=== PATIENT | female | born 1980 | race Caucasian/White ===

== ENCOUNTER 2019-04-10 10:03 | Outpatient (CLI) | payer OTHER ==
[~2019-04-10] VITALS: Ht 177.8 cm; Wt 123.9 kg
[~2019-04-10 10:03] MED LIST: ALBU8.5H2 IH; AZIT-21 PO; CEPH500C PO; LANS15CA PO; NAPR-243 PO; PREN-107 PO; PRENATAL PO; TRM50T PO
--- NOTE | 2019-04-10 10:05 | NUR ---
CASTRO PEREIRA presented to unit via ambulation, accompanied by , with c/o RT UPPER ABD PAIN since last noc. Pt. weighed, gowned, voided, and to bed. EFHM and TOCO applied, VS taken. Pt. oriented to bed controls, call light, TV, heat, and A/C controls.
--- OUTSIDE RECORDS SUMMARY | 2019-04-10 10:07 | XMS REPORT | Continuity of Care Document ---
Author Organization Unknown Address Unknown Allergies Active Description Code Type Severity Reaction Onset Reported/Identified Relationship to Patient Clinical Status Yes NKANo Known Allergies NKA Miscellaneous Allergy Mild N/A 12/08/2009 Medications There is no data. 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 06/13/2008 RYLAND MARKS APRN A 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 06/13/2008 CONCHITA PICKETT MD 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 06/13/2008 NANNETTE VANEGAS DO 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 06/13/2008 MONICA HANCOCK APRN 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 06/13/2008 NANNETTE VANEGAS DO 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 06/13/2008 NANNETTE VANEGAS DO 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 06/13/2008 NANNETTE VANEGAS DO 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 06/13/2008 NANNETTE VANEGAS DO 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 06/13/2008 NANNETTE VANEGAS DO 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 06/13/2008 NANNETTE VANEGAS DO 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 06/13/2008 VANEGAS DO, NANNETTE K 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 06/13/2008 VANEGAS DO, NANNETTE K 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 06/13/2008 VANEGAS DO, NANNETTE K 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 06/13/2008 VANEGAS DO, NANNETTE K 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 06/13/2008 VANEGAS DO, NANNETTE K 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 06/13/2008 QI CAZARES APRN 728.9 UNSPECIFIED DISORDER OF MUSCLE LIGAMENT AND FASCIA 10/12/2012 VANEGAS DO, NANNETTE K 703.0 Nail Ingrown 10/12/2012 VANEGAS DO, NANNETTE K 703.0 Nail Ingrown 10/12/2012 703.0 Nail Ingrown 10/12/2012 VANEGAS DO, NANNETTE K 703.0 Nail Ingrown 10/12/2012 VANEGAS DO, NANNETTE K 703.0 Nail Ingrown 10/12/2012 KENDRICK GRIGGSN, RYLAND A 703.0 Nail Ingrown 10/12/2012 KENDRICK UNDERCOAT SPRAYER, RYLAND A 703.0 Nail Ingrown 10/12/2012 PIYUSH JOSHI, CONCHITA N 703.0 Nail Ingrown 10/12/2012 VANEGAS DO, NANNETTE K 703.0 Nail Ingrown 10/12/2012 MONICA HANCOCK APRN 703.0 Nail Ingrown 10/12/2012 VANEGAS DO, NANNETTE K 703.0 Nail Ingrown 10/12/2012 VANEGAS DO, NANNETTE K 703.0 Nail Ingrown 10/12/2012 VANEGAS DO, NANNETTE K 703.0 Nail Ingrown 10/12/2012 VANEGAS DO, NANNETTE K 703.0 Nail Ingrown 10/12/2012 VANEGAS DO, NANNETTE K 703.0 Nail Ingrown 10/12/2012 VANEGAS DO, NANNETTE K 703.0 Nail Ingrown 10/12/2012 VANEGAS DO, NANNETTE K 703.0 Nail Ingrown 10/12/2012 VANEGAS DO, NANNETTE K 703.0 Nail Ingrown 10/12/2012 VANEGAS DO, NANNETTE K 703.0 Nail Ingrown 10/12/2012 VANEGAS DO, NANNETTE K 703.0 Nail Ingrown 10/12/2012 VANEGAS DO, NANNETTE K 703.0 Nail Ingrown 10/12/2012 QI CAZARES APRN 703.0 NAIL INGROWN 11/02/2012 VANEGAS DO NANNETTE K 493.90 ASTHMA UNSPECIFIED 11/02/2012 VANEGAS DO, NANNETTE K 628.9 INFERTILITY FEMALE OF UNSPECIFIED ORIGIN 11/02/2012 VANEGAS DO NANNETTE K 493.90 ASTHMA UNSPECIFIED 11/02/2012 VANEGAS DO NANNETTE K 628.9 INFERTILITY FEMALE OF UNSPECIFIED ORIGIN 11/02/2012 493.90 ASTHMA UNSPECIFIED 11/02/2012 628.9 INFERTILITY FEMALE OF UNSPECIFIED ORIGIN 11/02/2012 VANEGAS DO NANNETTE K 493.90 ASTHMA UNSPECIFIED 11/02/2012 VANEGAS DO NANNETTE K 628.9 INFERTILITY FEMALE OF UNSPECIFIED ORIGIN 11/02/2012 VANEGAS DO NANNETTE K 493.90 ASTHMA UNSPECIFIED 11/02/2012 VANEGAS DO NANNETTE K 628.9 INFERTILITY FEMALE OF UNSPECIFIED ORIGIN 11/02/2012 KENDRICK UNDERCOAT SPRAYER, RYLAND A 493.90 ASTHMA UNSPECIFIED 11/02/2012 KENDRICK UNDERCOAT SPRAYER, RYLAND A 628.9 INFERTILITY FEMALE OF UNSPECIFIED ORIGIN 11/02/2012 KENDRICK UNDERCOAT SPRAYER, RYLAND A 493.90 ASTHMA UNSPECIFIED 11/02/2012 KENDRICK UNDERCOAT SPRAYER, RYLAND A 628.9 INFERTILITY FEMALE OF UNSPECIFIED ORIGIN 11/02/2012 CONCHITA PICKETT MD N 493.90 ASTHMA UNSPECIFIED 11/02/2012 CONCHITA PICKETT MD N 628.9 INFERTILITY FEMALE OF UNSPECIFIED ORIGIN 11/02/2012 GUILHERME FUENTES NANNETTE K 493.90 ASTHMA UNSPECIFIED 11/02/2012 GUILHERME FUENTES NANNETTE K 628.9 INFERTILITY FEMALE OF UNSPECIFIED ORIGIN 11/02/2012 MONICA HANCOCK APRN R 493.90 ASTHMA UNSPECIFIED 11/02/2012 MONICA HANCOCK APRN R 628.9 INFERTILITY FEMALE OF UNSPECIFIED ORIGIN 11/02/2012 VANEGAS DO NANNETTE K 493.90 ASTHMA UNSPECIFIED 11/02/2012 VANEGAS DO NANNETTE K 628.9 INFERTILITY FEMALE OF UNSPECIFIED ORIGIN 11/02/2012 VANEGAS DO NANNETTE K 493.90 ASTHMA UNSPECIFIED 11/02/2012 VANEGAS DO, NANNETTE K 628.9 INFERTILITY FEMALE OF UNSPECIFIED ORIGIN 11/02/2012 VANEGAS DO, NANNETTE K 493.90 ASTHMA UNSPECIFIED 11/02/2012 VANEGAS DO, NANNETTE K 628.9 INFERTILITY FEMALE OF UNSPECIFIED ORIGIN 11/02/2012 VANEGAS DO, NANNETTE K 493.90 ASTHMA UNSPECIFIED 11/02/2012 VANEGAS DO, NANNETTE K 628.9 INFERTILITY FEMALE OF UNSPECIFIED ORIGIN 11/02/2012 VANEGAS DO, NANNETTE K 493.90 ASTHMA UNSPECIFIED 11/02/2012 VANEGAS DO, NANNETTE K 628.9 INFERTILITY FEMALE OF UNSPECIFIED ORIGIN 11/02/2012 VANEGAS DO, NANNETTE K 493.90 ASTHMA UNSPECIFIED 11/02/2012 VANEGAS DO, NANNETTE K 628.9 INFERTILITY FEMALE OF UNSPECIFIED ORIGIN 11/02/2012 VANEGAS DO, NANNETTE K 493.90 ASTHMA UNSPECIFIED 11/02/2012 VANEGAS DO, NANNETTE K 628.9 INFERTILITY FEMALE OF UNSPECIFIED ORIGIN 11/02/2012 VANEGAS DO, NANNETTE K 493.90 ASTHMA UNSPECIFIED 11/02/2012 VANEGAS DO, NANNETTE K 628.9 INFERTILITY FEMALE OF UNSPECIFIED ORIGIN 11/02/2012 VANEGAS DO, NANNETTE K 493.90 ASTHMA UNSPECIFIED 11/02/2012 VANEGAS DO, NANNETTE K 628.9 INFERTILITY FEMALE OF UNSPECIFIED ORIGIN 11/02/2012 VANEGAS DO, NANNETTE K 493.90 ASTHMA UNSPECIFIED 11/02/2012 VANEGAS DO, NANNETTE K 628.9 INFERTILITY FEMALE OF UNSPECIFIED ORIGIN 11/02/2012 VANEGAS DO, NANNETTE K 493.90 ASTHMA UNSPECIFIED 11/02/2012 VANEGAS DO, NANNETTE K 628.9 INFERTILITY FEMALE OF UNSPECIFIED ORIGIN 12/04/2012 610.1 DIFFUSE CYSTIC MASTOPATHY 12/04/2012 V76.2 CERVICAL CANCER SCREENING (PAP SMEAR) 12/04/2012 VANEGAS DO, NANNETTE K 610.1 DIFFUSE CYSTIC MASTOPATHY 12/04/2012 VANEGAS DO, NANNETTE K V76.2 CERVICAL CANCER SCREENING (PAP SMEAR) 12/04/2012 VANEGAS DO, NANNETTE K 610.1 DIFFUSE CYSTIC MASTOPATHY 12/04/2012 VANEGAS DO, NANNETTE K V76.2 CERVICAL CANCER SCREENING (PAP SMEAR) 12/04/2012 RYLAND MARKS APRN A 610.1 DIFFUSE CYSTIC MASTOPATHY 12/04/2012 RYLAND MARKS APRN A V76.2 CERVICAL CANCER SCREENING (PAP SMEAR) 12/04/2012 RYLAND MARKS APRN A 610.1 DIFFUSE CYSTIC MASTOPATHY 12/04/2012 RYLAND MARKS APRN A V76.2 CERVICAL CANCER SCREENING (PAP SMEAR) 12/04/2012 CONCHITA PICKETT MD 610.1 DIFFUSE CYSTIC MASTOPATHY 12/04/2012 CONCHITA PICKETT MD V76.2 CERVICAL CANCER SCREENING (PAP SMEAR) 12/04/2012 GUILHERME FUENTES NANNETTE K 610.1 DIFFUSE CYSTIC MASTOPATHY 12/04/2012 VANEGAS DO, NANNETTE K V76.2 CERVICAL CANCER SCREENING (PAP SMEAR) 12/04/2012 SANTI PRATT MONICA R 610.1 DIFFUSE CYSTIC MASTOPATHY 12/04/2012 STEWART HANCOCK APRNRICIA R V76.2 CERVICAL CANCER SCREENING (PAP SMEAR) 12/04/2012 GUILHERME FUENTES NANNETTE K 610.1 DIFFUSE CYSTIC MASTOPATHY 12/04/2012 VANEGAS , NANNETTE K V76.2 CERVICAL CANCER SCREENING (PAP SMEAR) 12/04/2012 GUILHERME FUENTES NANNETTE K 610.1 DIFFUSE CYSTIC MASTOPATHY 12/04/2012 VANEGAS , NANNETTE K V76.2 CERVICAL CANCER SCREENING (PAP SMEAR) 12/04/2012 VANEGAS , NANNETTE K 610.1 DIFFUSE CYSTIC MASTOPATHY 12/04/2012 VANEGAS DO, NANNETTE K V76.2 CERVICAL CANCER SCREENING (PAP SMEAR) 12/04/2012 VANEGAS DO, NANNETTE K 610.1 DIFFUSE CYSTIC MASTOPATHY 12/04/2012 VANEGAS DO, NANNETTE K V76.2 CERVICAL CANCER SCREENING (PAP SMEAR) 12/04/2012 GUILHERME FUENTES NANNETTE K 610.1 DIFFUSE CYSTIC MASTOPATHY 12/04/2012 VANEGAS DO, NANNETTE K V76.2 CERVICAL CANCER SCREENING (PAP SMEAR) 12/04/2012 VANEGAS DO, NANNETTE K 610.1 DIFFUSE CYSTIC MASTOPATHY 12/04/2012 VANEGAS DO, NANNETTE K V76.2 CERVICAL CANCER SCREENING (PAP SMEAR) 12/04/2012 VANEGAS DO, NANNETTE K 610.1 DIFFUSE CYSTIC MASTOPATHY 12/04/2012 VANEGAS DO, NANNETTE K V76.2 CERVICAL CANCER SCREENING (PAP SMEAR) 12/04/2012 VANEGAS , NANNETTE K 610.1 DIFFUSE CYSTIC MASTOPATHY 12/04/2012 VANEGAS DO, NANNETTE K V76.2 CERVICAL CANCER SCREENING (PAP SMEAR) 12/04/2012 VANEGAS DO, NANNETTE K 610.1 DIFFUSE CYSTIC MASTOPATHY 12/04/2012 VANEGAS DO, NANNETTE K V76.2 CERVICAL CANCER SCREENING (PAP SMEAR) 12/04/2012 VANEGAS DO, NANNETTE K 610.1 DIFFUSE CYSTIC MASTOPATHY 12/04/2012 VANEGAS DO, NANNETTE K V76.2 CERVICAL CANCER SCREENING (PAP SMEAR) 12/04/2012 VANEGAS DO, NANNETTE K 610.1 DIFFUSE CYSTIC MASTOPATHY 12/04/2012 VANEGAS DO, NANNETTE K V76.2 CERVICAL CANCER SCREENING (PAP SMEAR) 04/15/2014 VANEGAS DO, NANNETTE K V72.42 TEST POSITIVE RESULT 04/15/2014 KENDRICK PRATT, RYLAND A V72.42 TEST POSITIVE RESULT 04/15/2014 KENDRICK PRATT RYLAND A V72.42 TEST POSITIVE RESULT 04/15/2014 CONCHITA PICKETT MD V72.42 TEST POSITIVE RESULT 04/15/2014 VANEGAS DO, NANNETTE K V72.42 TEST POSITIVE RESULT 04/15/2014 MONICA HANCOCK APRN R V72.42 TEST POSITIVE RESULT 04/15/2014 VANEGAS DO, NANNETTE K V72.42 TEST POSITIVE RESULT 04/15/2014 VANEGAS DO, NANNETTE K V72.42 TEST POSITIVE RESULT 04/15/2014 VANEGAS DO, NANNETTE K V72.42 TEST POSITIVE RESULT 04/15/2014 VANEGAS DO, NANNETTE K V72.42 TEST POSITIVE RESULT 04/15/2014 VANEGAS DO, NANNETTE K V72.42 TEST POSITIVE RESULT 04/15/2014 VANEGAS DO, NANNETTE K V72.42 TEST POSITIVE RESULT 04/15/2014 VANEGAS DO, NANNETTE K V72.42 TEST POSITIVE RESULT 04/15/2014 VANEGAS DO, NANNETTE K V72.42 TEST POSITIVE RESULT 04/15/2014 VANEGAS DO, NANNETTE K V72.42 TEST POSITIVE RESULT 04/15/2014 VANEGAS DO, NANNETTE K V72.42 TEST POSITIVE RESULT 04/15/2014 VANEGAS DO, NANNETTE K V72.42 TEST POSITIVE RESULT 04/30/2014 RYLAND MARKS APRN A V22.1 , NORMAL OTHER 04/30/2014 RYLAND MARKS APRN A V22.1 , NORMAL OTHER 04/30/2014 PIYUSH JOSHI CONCHITA Garcia V22.1 , NORMAL OTHER 04/30/2014 VANEGAS DO, NANNETTE K V22.1 , NORMAL OTHER 04/30/2014 MACK HANCOCK APRNIA R V22.1 , NORMAL OTHER 04/30/2014 VANEGAS DO, NANNETTE K V22.1 , NORMAL OTHER 04/30/2014 VANEGAS DO, NANNETTE K V22.1 , NORMAL OTHER 04/30/2014 VANEGAS DO, NANNETTE K V22.1 , NORMAL OTHER 04/30/2014 VANEGAS DO, NANNETTE K V22.1 , NORMAL OTHER 04/30/2014 VANEGAS DO, NANNETTE K V22.1 , NORMAL OTHER 04/30/2014 VANEGAS DO, NANNETTE K V22.1 , NORMAL OTHER 04/30/2014 VANEGAS DO, NANNETTE K V22.1 , NORMAL OTHER 04/30/2014 VANEGAS DO, NANNETTE K V22.1 , NORMAL OTHER 04/30/2014 VANEGAS DO, NANNETTE K V22.1 , NORMAL OTHER 04/30/2014 VANEGAS DO, NANNETTE K V22.1 , NORMAL OTHER 04/30/2014 VANEGAS DO, NANNETTE K V22.1 , NORMAL OTHER 05/29/2014 RYLAND MARKS APRN A 611.72 LUMP OR MASS IN BREAST 05/29/2014 KENDRICK PRATT RYLAND A V74.5 STD SCREEN 05/29/2014 CONCHITA PICKETT MD N 611.72 LUMP OR MASS IN BREAST 05/29/2014 CONCHITA PICKETT MD N V74.5 STD SCREEN 05/29/2014 VANEGAS DO, NANNETTE K 611.72 LUMP OR MASS IN BREAST 05/29/2014 VANEGAS DO, NANNETTE K V74.5 STD SCREEN 05/29/2014 MACK HANCOCK APRNIA R 611.72 LUMP OR MASS IN BREAST 05/29/2014 MACK HANCOCK APRNIA R V74.5 STD SCREEN 05/29/2014 VANEGAS DO, NANNETTE K 611.72 LUMP OR MASS IN BREAST 05/29/2014 VANEGAS DO, NANNETTE K V74.5 STD SCREEN 05/29/2014 VANEGAS DO, NANNETTE K 611.72 LUMP OR MASS IN BREAST 05/29/2014 VANEGAS DO, NANNETTE K V74.5 STD SCREEN 05/29/2014 VANEGAS DO, NANNETTE K 611.72 LUMP OR MASS IN BREAST 05/29/2014 VANEGAS DO, NANNETTE K V74.5 STD SCREEN 05/29/2014 VANEGAS DO, NANNETTE K 611.72 LUMP OR MASS IN BREAST 05/29/2014 VANEGAS DO, NANNETTE K V74.5 STD SCREEN 05/29/2014 VANEGAS DO, NANNETTE K 611.72 LUMP OR MASS IN BREAST 05/29/2014 VANEGAS DO, NANNETTE K V74.5 STD SCREEN 05/29/2014 VANEGAS DO, NANNETTE K 611.72 LUMP OR MASS IN BREAST 05/29/2014 VANEGAS DO, NANNETTE K V74.5 STD SCREEN 05/29/2014 VANEGAS DO, NANNETTE K 611.72 LUMP OR MASS IN BREAST 05/29/2014 VANEGAS DO, NANNETTE K V74.5 STD SCREEN 05/29/2014 VANEGAS DO, NANNETTE K 611.72 LUMP OR MASS IN BREAST 05/29/2014 VANEGAS DO, NANNETTE K V74.5 STD SCREEN 05/29/2014 VANEGAS DO, NANNETTE K 611.72 LUMP OR MASS IN BREAST 05/29/2014 VANEGAS DO, NANNETTE K V74.5 STD SCREEN 05/29/2014 VANEGAS DO, NANNETTE K 611.72 LUMP OR MASS IN BREAST 05/29/2014 VANEGAS DO, NANNETTE K V74.5 STD SCREEN 05/29/2014 VANEGAS DO, NANNETTE K 611.72 LUMP OR MASS IN BREAST 05/29/2014 VANEGAS DO, NANNETTE K V74.5 STD SCREEN 06/20/2014 CONCHITA PICKETT MD 789.00 ABDOMINAL PAIN UNSPECIFIED SITE 06/20/2014 VANEGAS DO, NANNETTE K 789.00 ABDOMINAL PAIN UNSPECIFIED SITE 06/20/2014 MONICA HANCOCK APRN 789.00 ABDOMINAL PAIN UNSPECIFIED SITE 06/20/2014 VANEGAS DO, NANNETTE K 789.00 ABDOMINAL PAIN UNSPECIFIED SITE 06/20/2014 VANEGAS DO, NANNETTE K 789.00 ABDOMINAL PAIN UNSPECIFIED SITE 06/20/2014 VANEGAS DO, NANNETTE K 789.00 ABDOMINAL PAIN UNSPECIFIED SITE 06/20/2014 VANEGAS DO, NANNETTE K 789.00 ABDOMINAL PAIN UNSPECIFIED SITE 06/20/2014 VANEGAS DO, NANNETTE K 789.00 ABDOMINAL PAIN UNSPECIFIED SITE 06/20/2014 VANEGAS DO, NANNETTE K 789.00 ABDOMINAL PAIN UNSPECIFIED SITE 06/20/2014 VANEGAS DO, NANNETTE K 789.00 ABDOMINAL PAIN UNSPECIFIED SITE 06/20/2014 VANEGAS DO, NANNETTE K 789.00 ABDOMINAL PAIN UNSPECIFIED SITE 06/20/2014 VANEGAS DO, NANNETTE K 789.00 ABDOMINAL PAIN UNSPECIFIED SITE 06/20/2014 VANEGAS DO, NANNETTE K 789.00 ABDOMINAL PAIN UNSPECIFIED SITE 06/20/2014 VANEGAS DO, NANNETTE K 789.00 ABDOMINAL PAIN UNSPECIFIED SITE 07/14/2014 HANCOCK UNDERCOAT SPRAYER, MONICA R 462 ACUTE PHARYNGITIS 07/14/2014 SANTI UNDERCOAT SPRAYER, MONICA R 786.2 COUGH 07/14/2014 VANEGAS DO, NANNETTE K 462 ACUTE PHARYNGITIS 07/14/2014 VANEGAS DO, NANNETTE K 786.2 COUGH 07/14/2014 VANEGAS DO, NANNETTE K 462 ACUTE PHARYNGITIS 07/14/2014 VANEGAS DO, NANNETTE K 786.2 COUGH 07/14/2014 VANEGAS DO, NANNETTE K 462 ACUTE PHARYNGITIS 07/14/2014 VANEGAS DO, NANNETTE K 786.2 COUGH 07/14/2014 VANEGAS DO, NANNETTE K 462 ACUTE PHARYNGITIS 07/14/2014 VANEGAS DO, NANNETTE K 786.2 COUGH 07/14/2014 VANEGAS DO, NANNETTE K 462 ACUTE PHARYNGITIS 07/14/2014 VANEGAS DO, NANNETTE K 786.2 COUGH 07/14/2014 VANEGAS DO, NANNETTE K 462 ACUTE PHARYNGITIS 07/14/2014 VANEGAS DO, NANNETTE K 786.2 COUGH 07/14/2014 VANEGAS DO, NANNETTE K 462 ACUTE PHARYNGITIS 07/14/2014 VANEGAS DO, NANNETTE K 786.2 COUGH 07/14/2014 VANEGAS DO, NANNETTE K 462 ACUTE PHARYNGITIS 07/14/2014 VANEGAS DO, NANNETTE K 786.2 COUGH 07/14/2014 VANEGAS DO, NANNETTE K 462 ACUTE PHARYNGITIS 07/14/2014 VANEGAS DO, NANNETTE K 786.2 COUGH 07/14/2014 VANEGAS DO, NANNETTE K 462 ACUTE PHARYNGITIS 07/14/2014 VANEGAS DO, NANNETTE K 786.2 COUGH 07/14/2014 VANEGAS DO, NANNETTE K 462 ACUTE PHARYNGITIS 07/14/2014 VANEGAS DO, NANNETTE K 786.2 COUGH 07/18/2014 VANEGAS DO, NANNETTE K Ot 276.51 07/18/2014 VANEGAS DO, NANNETTE K Ot 462 07/18/2014 VANEGAS DO, NANNETTE K Ot 648.93 07/31/2014 VANEGAS DO, NANNETTE K 472.1 CHRONIC PHARYNGITIS 07/31/2014 VANEGAS DO, NANNETTE K 472.1 CHRONIC PHARYNGITIS 07/31/2014 VANEGAS DO, NANNETTE K 472.1 CHRONIC PHARYNGITIS 07/31/2014 VANEGAS DO, NANNETTE K 472.1 CHRONIC PHARYNGITIS 07/31/2014 VANEGAS DO, NANNETTE K 472.1 CHRONIC PHARYNGITIS 07/31/2014 VANEGAS DO, NANNETTE K 472.1 CHRONIC PHARYNGITIS 07/31/2014 VANEGAS DO, NANNETTE K 472.1 CHRONIC PHARYNGITIS 07/31/2014 VANEGAS DO, NANNETTE K 472.1 CHRONIC PHARYNGITIS 07/31/2014 VANEGAS DO, NANNETTE K 472.1 CHRONIC PHARYNGITIS 07/31/2014 VANEGAS DO, NANNETTE K 472.1 CHRONIC PHARYNGITIS 08/25/2014 VANEGAS DO, NANNETTE K 655.13 ABNORMAL TETRA SCREEN (DOWNS OR TRISOMY 18) 08/25/2014 VANEGAS DO, NANNETTE K V04.81 FLU SHOT 08/25/2014 VANEGAS DO, NANNETTE K 655.13 ABNORMAL TETRA SCREEN (DOWNS OR TRISOMY 18) 08/25/2014 VANEGAS DO, NANNETTE K V04.81 FLU SHOT 08/25/2014 VANEGAS DO, NANNETTE K 655.13 ABNORMAL TETRA SCREEN (DOWNS OR TRISOMY 18) 08/25/2014 VANEGAS DO, NANNETTE K V04.81 FLU SHOT 08/25/2014 VANEGAS DO, NANNETTE K 655.13 ABNORMAL TETRA SCREEN (DOWNS OR TRISOMY 18) 08/25/2014 VANEGAS DO, NANNETTE K V04.81 FLU SHOT 08/25/2014 VANEGAS DO, NANNETTE K 655.13 ABNORMAL TETRA SCREEN (DOWNS OR TRISOMY 18) 08/25/2014 VANEGAS DO, NANNETTE K V04.81 FLU SHOT 08/25/2014 VANEGAS DO, NANNETTE K 655.13 ABNORMAL TETRA SCREEN (DOWNS OR TRISOMY 18) 08/25/2014 VANEGAS DO, NANNETTE K V04.81 FLU SHOT 08/25/2014 VANEGAS DO, NANNETTE K 655.13 ABNORMAL TETRA SCREEN (DOWNS OR TRISOMY 18) 08/25/2014 VANEGAS DO, NANNETTE K V04.81 FLU SHOT 08/25/2014 VANEGAS DO, NANNETTE K 655.13 ABNORMAL TETRA SCREEN (DOWNS OR TRISOMY 18) 08/25/2014 VANEGAS DO, NANNETTE K V04.81 FLU SHOT 08/25/2014 VANEGAS DO, NANNETTE K 655.13 ABNORMAL TETRA SCREEN (DOWNS OR TRISOMY 18) 08/25/2014 VANEGAS DO, NANNETTE K V04.81 FLU SHOT 09/22/2014 VANEGAS DO, NANNETTE K V77.1 DIABETES SCREENING 09/22/2014 VANEGAS DO, NANNETTE K V78.0 ANEMIA SCREENING 09/22/2014 VANEGAS DO, NANNETTE K V77.1 DIABETES SCREENING 09/22/2014 VANEGAS DO, NANNETTE K V78.0 ANEMIA SCREENING 09/22/2014 VANEGAS DO, NANNETTE K V77.1 DIABETES SCREENING 09/22/2014 VANEGAS DO, NANNETTE K V78.0 ANEMIA SCREENING 09/22/2014 VANEGAS DO, NANNETTE K V77.1 DIABETES SCREENING 09/22/2014 VANEGAS DO, NANNETTE K V78.0 ANEMIA SCREENING 09/22/2014 VANEGAS DO, NANNETTE K V77.1 DIABETES SCREENING 09/22/2014 VANEGAS DO, NANNETTE K V78.0 ANEMIA SCREENING 09/22/2014 VANEGAS DO, NANNETTE K V77.1 DIABETES SCREENING 09/22/2014 VANEGAS DO, NANNETTE K V78.0 ANEMIA SCREENING 09/22/2014 VANEGAS DO, NANNETTE K V77.1 DIABETES SCREENING 09/22/2014 VANEGAS DO, NANNETTE K V78.0 ANEMIA SCREENING 09/22/2014 VANEGAS DO, NANNETTE K V77.1 DIABETES SCREENING 09/22/2014 VANEGAS DO, NANNETTE K V78.0 ANEMIA SCREENING 09/24/2014 VANEGAS DO, NANNETTE K 648.80 ABNORMAL GTT IN 09/24/2014 VANEGAS DO, NANNETTE K 648.80 ABNORMAL GTT IN 09/24/2014 VANEGAS DO, NANNETTE K 648.80 ABNORMAL GTT IN 09/24/2014 VANEGAS DO, NANNETTE K 648.80 ABNORMAL GTT IN 09/24/2014 VANEGAS DO, NANNETTE K 648.80 ABNORMAL GTT IN 09/24/2014 VANEGAS DO, NANNETTE K 648.80 ABNORMAL GTT IN 09/24/2014 VANEGAS DO, NANNETTE K 648.80 ABNORMAL GTT IN 09/24/2014 VANEGAS DO, NANNETTE K 648.80 ABNORMAL GTT IN 10/10/2014 VANEGAS DO, NANNETTE K Ot 648.83 11/03/2014 VANEGAS DO, NANNETTE K 789.00 ABDOMINAL PAIN UNSPECIFIED SITE 11/03/2014 VANEGAS DO, NANNETTE K 789.00 ABDOMINAL PAIN UNSPECIFIED SITE 11/03/2014 VANEGAS DO, NANNETTE K 789.00 ABDOMINAL PAIN UNSPECIFIED SITE 11/03/2014 VANEGAS DO, NANNETTE K 789.00 ABDOMINAL PAIN UNSPECIFIED SITE 11/03/2014 VANEGAS DO, NANNETTE K 789.00 ABDOMINAL PAIN UNSPECIFIED SITE 11/03/2014 VANEGAS DO, NANNETTE K 789.00 ABDOMINAL PAIN UNSPECIFIED SITE 11/06/2014 Ot 611.72 11/06/2014 Ot V22.1 11/06/2014 Ot V22.1 11/06/2014 Ot 722.52 11/06/2014 KENDRICK, RYLAND A UNDERCOAT SPRAYER Ot 620.2 11/06/2014 KENDRICK, RYLAND A UNDERCOAT SPRAYER Ot 648.93 11/06/2014 KENDRICK, RYLAND A UNDERCOAT SPRAYER Ot V28.81 11/06/2014 KENDRICK, RYLAND A UNDERCOAT SPRAYER Ot 611.72 11/06/2014 KENDRICK, RYLAND A UNDERCOAT SPRAYER Ot V22.2 11/06/2014 VANEGAS DO, NANNETTE K Ot V28.81 11/06/2014 VANEGAS DO, NANNETTE K Ot 655.13 11/06/2014 VANEGAS DO, NANNETTE K Ot V28.81 11/06/2014 VANEGAS DO, NANNETTE K Ot 648.83 11/06/2014 VANEGAS DO, NANNETTE K Ot V28.81 11/06/2014 VANEGAS DO, NANNETTE K Ot V28.81 11/06/2014 VANEGAS DO, NANNETTE K Ot 655.13 11/06/2014 VANEGAS DO, NANNETTE K Ot V28.81 11/14/2014 VANEGAS DO, NANNETTE K Ot 625.9 11/14/2014 VANEGAS DO, NANNETTE K Ot 648.93 11/24/2014 VANEGAS DO, NANNETTE K V23.9 , HIGH-RISK (UNSPEC) 11/24/2014 VANEGAS DO, NANNETTE K V28.6 GBS SCREENING 11/24/2014 VANEGAS DO, NANNETTE K V23.9 , HIGH-RISK (UNSPEC) 11/24/2014 VANEGAS DO, NANNETTE K V28.6 GBS SCREENING 11/24/2014 VANEGAS DO, NANNETTE K V23.9 , HIGH-RISK (UNSPEC) 11/24/2014 VANEGAS DO, NANNETTE K V28.6 GBS SCREENING 11/24/2014 VANEGAS DO, NANNETTE K V23.9 , HIGH-RISK (UNSPEC) 11/24/2014 VANEGAS DO, NANNETTE K V28.6 GBS SCREENING 11/27/2014 VANEGAS DO, NANNETTE K Ot V28.81 12/01/2014 VANEGAS DO, ANNNETTE K 530.81 ESOPHAGEAL REFLUX 12/01/2014 VANEGAS DO, NANNETTE K 530.81 ESOPHAGEAL REFLUX 12/01/2014 VANEGAS DO, NANNETTE K 530.81 ESOPHAGEAL REFLUX 12/15/2014 Ot 611.72 12/15/2014 Ot V22.1 12/15/2014 Ot V22.1 12/15/2014 Ot 722.52 12/15/2014 RYLAND MARKS UNDERCOAT SPRAYER Ot 620.2 12/15/2014 RYLAND MARKS UNDERCOAT SPRAYER Ot 648.93 12/15/2014 RYLAND MARKS UNDERCOAT SPRAYER Ot V28.81 12/15/2014 RYLAND MARKS UNDERCOAT SPRAYER Ot 611.72 12/15/2014 RYLAND MARKS UNDERCOAT SPRAYER Ot V22.2 12/15/2014 VANEGAS DO, NANNETTE K Ot V28.81 12/15/2014 VANEGAS DO, NANNETTE K Ot 655.13 12/15/2014 VANEGAS DO, NANNETTE K Ot V28.81 12/15/2014 VANEGAS DO, NANNETTE K Ot 648.83 12/15/2014 VANEGAS DO, NANNETTE K Ot V28.81 12/16/2014 Ot 611.72 12/16/2014 Ot V22.1 12/16/2014 Ot V22.1 12/16/2014 Ot 722.52 12/16/2014 RYLAND MARKS UNDERCOAT SPRAYER Ot 620.2 12/16/2014 KENDRICK, RYLAND A UNDERCOAT SPRAYER Ot 648.93 12/16/2014 KENDRICK, RYLAND A UNDERCOAT SPRAYER Ot V28.81 12/16/2014 KENDRICK, RYLAND A UNDERCOAT SPRAYER Ot 611.72 12/16/2014 KENDRICK, RYLAND A UNDERCOAT SPRAYER Ot V22.2 12/16/2014 VANEGAS DO, NANNETTE K Ot V28.81 12/16/2014 VANEGAS DO, NANNETTE K Ot 655.13 12/16/2014 VANEGAS DO, NANNETTE K Ot V28.81 12/16/2014 VANEGAS DO, NANNETTE K Ot 648.83 12/16/2014 VANEGAS DO, NANNETTE K Ot V28.81 12/17/2014 VANEGAS DO, NANNETTE K Ot 288.60 12/17/2014 VANEGAS DO, NANNETTE K Ot 645.11 12/17/2014 VANEGAS DO, NANNETTE K Ot 648.91 12/17/2014 VANEGAS DO, NANNETTE K Ot V27.0 12/19/2014 VANEGAS DO, NANNETTE K Ot 655.13 12/19/2014 VANEGAS DO, NANNETTE K Ot V28.81 12/19/2014 VANEGAS DO, NANNETTE K Ot V28.81 12/19/2014 KENDRICK, RYLAND A UNDERCOAT SPRAYER Ot 611.72 12/19/2014 KENDRICK, RYLAND A UNDERCOAT SPRAYER Ot V22.2 12/19/2014 KENDRICK, RYLAND A UNDERCOAT SPRAYER Ot 620.2 12/19/2014 KENDRICK, RYLAND A UNDERCOAT SPRAYER Ot 648.93 12/19/2014 KENDRICK, RYLAND A UNDERCOAT SPRAYER Ot V28.81 01/01/2015 Ot 611.72 01/01/2015 Ot V22.1 01/01/2015 Ot V22.1 01/01/2015 Ot 722.52 01/01/2015 KENDRICK, RYLAND A UNDERCOAT SPRAYER Ot 620.2 01/01/2015 KENDRICK, RYLAND A UNDERCOAT SPRAYER Ot 648.93 01/01/2015 KENDRICK, RYLAND A UNDERCOAT SPRAYER Ot V28.81 01/01/2015 KENDRICK, RYLAND A UNDERCOAT SPRAYER Ot 611.72 01/01/2015 KENDRICK, RYLAND A UNDERCOAT SPRAYER Ot V22.2 01/01/2015 NANNETTE VANEGAS DO Ot V28.81 01/01/2015 NANNETTE VANEGAS DO Ot 655.13 01/01/2015 NANNETTE VANEGAS DO Ot V28.81 01/01/2015 NANNETTE VANEGAS DO Ot 648.83 01/01/2015 NANNETTE VANEGAS DO Ot V28.81 11/14/2015 Ot V22.1 11/14/2015 Ot V22.1 11/14/2015 Ot 722.52 11/14/2015 RYLAND MARKS UNDERCOAT SPRAYER Ot 620.2 11/14/2015 KENDRICK, RYLAND Ike UNDERCOAT SPRAYER Ot 648.93 11/14/2015 KENDRICK, RYLAND Ike UNDERCOAT SPRAYER Ot V28.81 11/14/2015 HARLAN MARKSIDI Ike UNDERCOAT SPRAYER Ot 611.72 11/14/2015 RYLAND MARKS UNDERCOAT SPRAYER Ot V22.2 11/14/2015 NANNETTE VANEGAS DO Ot V28.81 11/14/2015 NANNETTE VANEGAS DO Ot 655.13 11/14/2015 NANNETTE VANEGAS DO Ot V28.81 11/14/2015 NANNETTE VANEGAS DO Ot 648.83 11/14/2015 NANNETTE VANEGAS DO Ot V28.81 Procedures Code [place] [address] REMOVAL OF NAIL BED 10/12/2012 67776 ROUTINE VENIPUNCTURE 11/22/2012 29270 PROLACTIN 11/22/2012 20468 TSH 11/22/2012 58135 CBC 11/22/2012 90990 SYPHILIS TEST 11/22/2012 19062 HIV ANTIBODIES (RML) 11/22/2012 90173 RUBELLA ANTIBODY, IGG 11/22/2012 46488 HEP C ANTIBODY (RML) 11/22/2012 67718 BLOOD TYPE/Rh FACTOR 11/22/2012 91020 HEP B SURFACE ANTIGEN (L) 11/22/2012 13439 PAP SMEAR 12/04/2012 Q0091 PAP SMEAR OBTAIN SMEAR 12/04/2012 57528 ROUTINE VENIPUNCTURE 12/10/2012 18009 TEST, URINE (IN-HOUSE) 04/15/2014 69229 US OB - EARLY <14 WEEKS 04/30/2014 71360 ROUTINE VENIPUNCTURE 05/29/2014 19868 US BREAST ULTRASOUND, RIGHT 05/29/2014 15446 SYPHILLIS-[facility] 05/29/2014 07346 HIV ([facility]) 05/29/2014 66422 ANTIBODY SCREEN (order) 05/29/2014 55374 HEP B SURFACE ANTIGEN (STATE) 05/29/2014 39511 GC/CHLAM PROBE ([facility]) 05/29/2014 82888 TRICHOMONAS (IN-HOUSE) 05/29/2014 25298 CBC 05/29/2014 94958 TSH 05/29/2014 73780 RUBELLA ANTIBODY, IGG 05/30/2014 [id number] ANTIBODY SCREEN (RESULT ONLY) 05/30/2014 03621 BLOOD TYPE/Rh FACTOR 05/30/2014 02154 CULTURE URINE 05/30/2014 81980 CULTURE UROGENITAL 06/01/2014 19877 UA W/ CULTURE IF INDICATED 06/20/2014 91550 CULTURE URINE 06/20/2014 81005 OB - COMPLETE >14 WEEKS 06/25/2014 77779 UA OB DIP 06/25/2014 29745 OXIMETRY 07/14/2014 36699 ROUTINE VENIPUNCTURE 07/23/2014 85714 UA OB DIP 07/23/2014 Obstetric Osmar Hancock 07/24/2014 TETRA TETRA SCREEN 07/28/2014 21666 US OB - FOLLOW UP 08/25/2014 13210 UA OB DIP 08/25/2014 12356 ROUTINE VENIPUNCTURE 09/22/2014 80571 GLUCOSE TAVON 1 HOUR 09/22/2014 61830 GLUCOSE TAVON 3 HOUR 09/22/2014 28941 CBC 09/22/2014 52695 UA OB DIP 09/22/2014 85144 UA OB DIP 10/06/2014 94900 ROUTINE VENIPUNCTURE 11/03/2014 65070 US OB - FOLLOW UP 11/03/2014 53365 CMP 11/03/2014 56255 CBC 11/03/2014 48856 NON-STRESS TEST 11/24/2014 74188 CULTURE GROUP B STREP VAG 11/24/2014 46350 UA OB DIP 11/24/2014 36163 NON-STRESS TEST 12/01/2014 36007 UA OB DIP 12/01/2014 96358 NON-STRESS TEST 12/08/2014 17204 UA OB DIP 12/08/2014 35167 UA OB DIP 12/15/2014 Results There is no data. Encounters ACCT No. Visit Date/Time Discharge Status Pt. Type Provider Facility Loc./Unit Complaint [id number] 12/15/2014 17:10:00 12/17/2014 18:25:00 DIS Inpatient NANNETTE VANEGAS DO Via [facility] [address] LDRP [id number] 11/14/2014 18:29:00 11/14/2014 20:15:00 DIS Outpatient NANNETTE VANEGAS DO K [facility] [address] WSo [id number] 11/07/2014 09:56:00 11/07/2014 23:59:59 CLS Outpatient VANEGAS DONANNETTE K [facility] [address] RAD [id number] 09/26/2014 08:34:00 09/26/2014 23:59:59 CLS Outpatient VANEGAS DONANNETTE K [facility] [address] LAB [id number] 09/01/2014 09:35:00 09/01/2014 23:59:59 CLS Outpatient VANEGAS DONANNETTE K [facility] [address] RAD [id number] 07/28/2014 09:59:00 07/28/2014 23:59:59 CLS Outpatient VANEGAS DONANNETTE K [facility] [address] RAD [id number] 07/28/2014 09:56:00 07/28/2014 23:59:59 CLS Outpatient KENDRICK, RYLAND A [employer] [facility] [address] RAD [id number] 07/18/2014 02:28:00 07/18/2014 11:30:00 DIS Inpatient GUILHERME DONANNETTE K Via [address] [id number] 05/13/2014 09:14:00 05/13/2014 23:59:59 CLS Outpatient KENDRICK, RYLAND A [employer] [facility] [address] RAD [id number] 11/06/2014 08:15:00 Document Registration [id number] 09/24/2012 12:03:00 Document Registration [id number] 08/16/2012 11:29:00 Document Registration [id number] 08/14/2012 12:15:00 Document Registration [id number] 03/23/2010 10:00:00 Document Registration [id number] 12/08/2014 10:25:00 12/08/2014 23:59:59 CLS Outpatient VANEGAS DONANNETTE [id number] 12/01/2014 10:26:00 12/01/2014 23:59:59 CLS Outpatient VANEGAS DONANNETTE [id number] 11/24/2014 13:23:00 11/24/2014 23:59:59 CLS Outpatient VANEGAS DO, NANNETTE Leal [id number] 11/24/2014 13:23:00 11/24/2014 23:59:59 CLS Outpatient VANEGAS DONANNETTE [id number] 11/03/2014 10:28:00 11/03/2014 23:59:59 CLS Outpatient VANEGAS DO, NANNETTE Leal [id number] 10/20/2014 10:41:00 10/20/2014 23:59:59 CLS Outpatient VANEGAS DO, NANNETTE Leal [id number] 10/20/2014 10:41:00 10/20/2014 23:59:59 CLS Outpatient VANEGAS DO, NANNETTE Leal [id number] 09/22/2014 09:34:00 09/22/2014 23:59:59 CLS Outpatient VANEGAS DO, NANNETTE Leal [id number] 09/22/2014 09:34:00 09/22/2014 23:59:59 CLS Outpatient VANEGAS DO, NANNETTE Leal [id number] 08/25/2014 09:21:00 08/25/2014 23:59:59 CLS Outpatient VANEGAS DO, NANNETTE Leal [id number] 07/23/2014 10:10:00 07/23/2014 23:59:59 CLS Outpatient VANEGAS DONANNETTE [id number] 07/23/2014 10:10:00 07/23/2014 23:59:59 CLS Outpatient VANEGAS DONANNETTE [id number] 07/14/2014 15:17:00 07/14/2014 23:59:59 CLS Outpatient MONICA HANCOCK APRN [id number] 06/25/2014 09:30:00 06/25/2014 23:59:59 CLS Outpatient VANEGAS DO, NANNETTE Elvis [id number] 06/20/2014 09:42:00 06/20/2014 23:59:59 CLS Outpatient CONCHITA PICKETT MD [id number] 05/29/2014 08:38:00 05/29/2014 23:59:59 CLS Outpatient RYLAND MARKS APRN [id number] 04/30/2014 10:10:00 04/30/2014 23:59:59 CLS Outpatient RYLAND MARKS APRN [id number] 04/15/2014 10:39:00 04/15/2014 23:59:59 CLS Outpatient NANNETTE VANEGAS DO [id number] 12/10/2012 08:39:00 12/10/2012 23:59:59 CLS Outpatient NANNETTE VANEGAS DO [id number] 12/04/2012 14:45:00 12/04/2012 23:59:59 CLS Outpatient [id number] 11/22/2012 08:38:00 11/22/2012 23:59:59 CLS Outpatient NANNETTE VANEGAS DO [id number] 11/02/2012 11:40:00 11/02/2012 23:59:59 CLS Outpatient NANNETTE VANEGAS DO [id number] 06/13/2008 11:07:00 06/13/2008 23:59:59 CLS Outpatient QI CAZARES APRN
[2019-04-10 10:10] VITALS: BP 151/86
--- NOTE | 2019-04-10 10:10 | NUR ---
pt reports upper Rt.quad pain that started last noc. describes as constant dull pain then becomes sharp, rachel with coughing. abd tender to palpation. no tenderness noted on LT.abd. pt has allergies, taking OTC medication x2 days. non productive cough noted. lungs CTA, diminished bilat. reports hx of asthma. denies PADILLA, blurry vision or epigastric pain. reports recent frontal PADILLA. denies contractions, vaginal bleeding or leaking fluid. reports decreased FM.
--- NOTE | 2019-04-10 10:14 | NUR ---
pt up to BR.
[2019-04-10 10:45] VITALS: BP 140/84
[2019-04-10 10:54] LABS: BILIRUBIN,URINE NEGATIVE (NEGATIVE); CLARITY,URINE CLEAR; COLOR,URINE YELLOW; GLUCOSE, URINE (UA) NEGATIVE (NEGATIVE); KETONES,URINE 4+ (NEGATIVE); LEUKOCYTE ESTERASE ,URINE 1+ (NEGATIVE); NITRITE,URINE NEGATIVE (NEGATIVE); PH,URINE 6.5 (5-9); PROTEIN,URINE 1+ (NEGATIVE); UROBILINOGEN,URINE NORMAL (NORMAL)
[2019-04-10 11:08] LABS: BASOPHILS % (AUTO) 0 % (0-10); EOSINOPHILS # (AUTO) 0.1 10^3/uL (0.0-0.3); EOSINOPHILS % (AUTO) 0 % (0-10); HEMATOCRIT 33 % (35-52); HEMOGLOBIN 10.6 G/DL (11.5-16.0); LYMPHOCYTES % (AUTO) 11 % (12-44); MEAN CORPUSCULAR HEMOGLOBIN 27 PG (25-34); MEAN CORPUSCULAR HGB CONC 33 G/DL (32-36); MEAN CORPUSCULAR VOLUME 83 FL (80-99); MEAN PLATELET VOLUME 10.3 FL (7.4-10.4); MONOCYTES % (AUTO) 5 % (0-12); NEUTROPHILS # (AUTO) 14.8 X 10^3 (1.8-7.8); NEUTROPHILS % (AUTO) 83 % (42-75); PLATELET COUNT 253 10^3/uL (130-400); RED CELL DISTRIBUTION WIDTH 14.2 % (10.0-14.5); WHITE BLOOD COUNT 17.8 10^3/uL (4.3-11.0)
[2019-04-10 11:29] LABS: BACTERIA,URINE FEW /HPF; SQUAMOUS EPITHELIAL CELL,UR 25-50 /HPF
[2019-04-10 11:35] LABS: ALANINE AMINOTRANSFERASE 15 U/L (0-55); ALBUMIN 3.1 GM/DL (3.2-4.5); ALKALINE PHOSPHATASE 87 U/L (40-136); BILIRUBIN,TOTAL 0.4 MG/DL (0.1-1.0); BUN/CREATININE RATIO 10; CALCIUM 9.1 MG/DL (8.5-10.1); CARBON DIOXIDE 19 MMOL/L (21-32); CHLORIDE 107 MMOL/L (98-107); CREATININE SERUM 0.52 MG/DL (0.60-1.30); GFR ESTIMATED > 60; GLUCOSE 147 MG/DL (70-105); POTASSIUM 3.2 MMOL/L (3.6-5.0); SODIUM 138 MMOL/L (135-145)
[2019-04-10 11:56] LABS: LYMPHOCYTES % (MANUAL) 16 %; MONOCYTES % (MANUAL) 5 %; NEUTROPHILS % (MANUAL) 79 %
[2019-04-10 11:57] LABS: RBC MORPH NORMAL
--- NOTE | 2019-04-10 13:17 | NUR ---
labs shown to .
--- NOTE | 2019-04-10 14:25 | NUR ---
dismissal instructions given, verbalizes understanding. reviewed IOL date and time with pt. signature page signed, placed on chart. pt ambulated to private vehicle with s/o @ side. pt stable upon dismissal.
--- NOTE | 2019-04-16 11:38 | Physician Query-Final Dx ---
[facility] 1138: Clinic Account Progress/Dx Physician Query: Dr Starkey Please give a diagnosis and include the weeks of gestation. thank you Date of Service HAYDEN STARKEY DO 04/18/19 1014: Clinic Account Progress/Dx DIAGNOSIS: Diagnosis she is still in the hospital [facility] April 16, 2019 11:38 HAYDEN STARKEY DO April 18, 2019 10:14
[2019-04-18] MEDS ORDERED: ACET-77 PO (10:11)
[2019-04-18] MEDS ORDERED: IBUP-844 PO (10:11)
[2019-04-24] MEDS ORDERED: CEFD300C3 PO (10:21)
== END 2019-04-10 14:25 | disposition home or self-care (01) ==
LOC: WSo 10:03 → LDRP 10:03 → UNDOADMOB 10:03 → LDRP 13:21 → WS 13:21 → WSo 14:25 → UNDODISOB 14:25 → EDSTATUS 04-16 15:09
PROVIDERS: ATTEND Obstetrics & Gynecology
DX: O99.89 Other specified diseases and conditions complicating pregnancy, childbirth and the puerperium (principal); R10.11 Right upper quadrant pain; Z3A.36 36 weeks gestation of pregnancy
CPT/HCPCS: 36415; 80053; 81000; 82570; 83615; 84156; 84550; 85007; 85027; 87088; 99213

== ENCOUNTER 2019-04-16 07:46 | Inpatient (IN) | payer OTHER ==
[~2019-04-16] VITALS: Ht 177.8 cm; Wt 126.7 kg
[2019-04-16] VITALS (29 sets, daily range): BP systolic 126–180; BP diastolic 59–93
--- NOTE | 2019-04-16 07:55 | NUR ---
CASTRO PEREIRA presented to unit via AMBULATORY from HOME, accompanied by S/O FOR INDUCTION OF LABOR. CASTRO PEREIRA weighed, gowned, voided, and to bed. EFHM and TOCO applied, VS taken. CASTRO PEREIRA oriented to bed controls, call light, TV, heat, and A/C controls.
[2019-04-16] MEDS ORDERED: D5 LR IV SOLUTION 1,000 ML IV SCH (08:18)
[2019-04-16] MEDS ORDERED: TERBUTALINE INJ 1 MG/ML (BRETHINE) AMP SC PRN (08:30)
[2019-04-16] MEDS ORDERED: MINERAL OIL CONCENTRATE 99.9% 15 ML UDC TOP PRN (08:30)
[2019-04-16] MEDS ORDERED: MISOPROSTOL 100 MCG (CYTOTEC) TAB PO ONE (08:30)
[2019-04-16] MEDS: LACTATED RINGERS 1,000 ML IV SCH ×4 (08:40→18:41)
[2019-04-16 08:57] LABS: BASOPHILS % (AUTO) 0 % (0-10); EOSINOPHILS # (AUTO) 0.1 10^3/uL (0.0-0.3); EOSINOPHILS % (AUTO) 1 % (0-10); HEMATOCRIT 31 % (35-52); HEMOGLOBIN 10.3 G/DL (11.5-16.0); LYMPHOCYTES # (AUTO) 1.7 X 10^3 (1.0-4.0); LYMPHOCYTES % (AUTO) 11 % (12-44); MEAN CORPUSCULAR HEMOGLOBIN 27 PG (25-34); MEAN CORPUSCULAR HGB CONC 33 G/DL (32-36); MEAN CORPUSCULAR VOLUME 82 FL (80-99); MEAN PLATELET VOLUME 11.3 FL (7.4-10.4); MONOCYTES % (AUTO) 6 % (0-12); NEUTROPHILS # (AUTO) 13.1 X 10^3 (1.8-7.8); NEUTROPHILS % (AUTO) 82 % (42-75); PLATELET COUNT 214 10^3/uL (130-400); RED CELL DISTRIBUTION WIDTH 14.3 % (10.0-14.5)
[2019-04-16 08:58] LABS: BILIRUBIN,URINE NEGATIVE (NEGATIVE); CLARITY,URINE CLEAR; COLOR,URINE YELLOW; GLUCOSE, URINE (UA) NEGATIVE (NEGATIVE); KETONES,URINE NEGATIVE (NEGATIVE); LEUKOCYTE ESTERASE ,URINE 2+ (NEGATIVE); NITRITE,URINE NEGATIVE (NEGATIVE); PH,URINE 6 (5-9); PROTEIN,URINE 1+ (NEGATIVE); UROBILINOGEN,URINE NORMAL (NORMAL)
[2019-04-16] MEDS ORDERED: FERR-84 PO (09:00)
[2019-04-16 09:05] LABS: BACTERIA,URINE MODERATE /HPF
[2019-04-16 09:36] LABS: ALANINE AMINOTRANSFERASE 12 U/L (0-55); ALKALINE PHOSPHATASE 84 U/L (40-136); BILIRUBIN,TOTAL 0.4 MG/DL (0.1-1.0); BUN/CREATININE RATIO 9; CALCIUM 8.9 MG/DL (8.5-10.1); CARBON DIOXIDE 24 MMOL/L (21-32); CHLORIDE 108 MMOL/L (98-107); CREATININE SERUM 0.53 MG/DL (0.60-1.30); GFR ESTIMATED > 60; GLUCOSE 131 MG/DL (70-105); POTASSIUM 3.6 MMOL/L (3.6-5.0); SODIUM 139 MMOL/L (135-145); TOTAL PROTEIN 5.4 GM/DL (6.4-8.2)
[2019-04-16] MEDS: MISOPROSTOL 100 MCG (CYTOTEC) TAB PO SCH ×2 (13:32→17:33)
[2019-04-16] MEDS ORDERED: fentaNYL INJECTION 100 MCG/2 ML AMP IVP PRN (18:00)
[2019-04-16] MEDS ORDERED: SUFENTA 0.6MCG/ML BUPIVA 0.125 100 ML ONE (18:45)
[2019-04-16] MEDS ORDERED: fentaNYL INJECTION 100 MCG/2 ML AMP ONE (19:16)
[2019-04-16] MEDS ORDERED: LACTATED RINGERS 1,000 ML IV ONE ×2 (19:42)
[2019-04-16] MEDS ORDERED: ONDANSETRON 4 MG/2 ML (SDV) Z0FRAN IV PRN (19:45)
[2019-04-16] MEDS ORDERED: EPIDURAL (SUFENTA 0.6MCG/ML BUPIVA 0.125%) 100 ML BAG EPI PRN (19:45)
[2019-04-16] MEDS ORDERED: NALOXONE 0.4 MG/ML 1 ML (NARCAN) VIAL IV PRN (19:45)
[2019-04-16] MEDS: CATHETER FLUSH 10 ML SYR IV SCH (19:47)
[2019-04-16] MEDS ORDERED: LIDOCAINE PF 2% 5 ML (XYLOCAINE) VIAL ONE (19:50)
[2019-04-16] MEDS ORDERED: BUPIVACAINE 0.25% 30 ML (SENSORCAINE) VIAL ONE (19:50)
[2019-04-16] MEDS ORDERED: OXYTOCIN/NORMAL SALINE 500 ML IV SCH (20:37)
[2019-04-16] MEDS ORDERED: OXYTOCIN/NORMAL SALINE 500 ML IV ONE (20:37)
[2019-04-17] VITALS (21 sets, daily range): BP systolic 115–170; BP diastolic 58–89
[2019-04-17] MEDS ORDERED: LIDOCAINE/EPI 2% 1:200,00 (XYLOCAINE) 10 ML VIAL ONE (01:35)
[2019-04-17] MEDS: LACTATED RINGERS 1,000 ML IV SCH (01:42)
[2019-04-17] MEDS ORDERED: OXYTOCIN/NORMAL SALINE 500 ML IV SCH (02:27)
[2019-04-17] MEDS ORDERED: MEASLES,MUMPS,RUBELLA 1 EA INJ SQ ONE (02:30)
[2019-04-17] MEDS ORDERED: BENZOCAINE/MENTHOL (DERMOPLAST) 56 ML CAN TP PRN (02:30)
[2019-04-17] MEDS ORDERED: WITCH HAZEL(TUCKS) 40 EA JAR TOP PRN (02:30)
[2019-04-17] MEDS ORDERED: TETANUS,DIPTH,PERTUSS P/F (BOOSTRIX) 0.5 ML VIAL IM ONE (02:30)
--- NOTE | 2019-04-17 02:47 | OB Labor & Delivery Record ---
Vag Delivery Note Vag Delivery Note Date of Delivery: 04/17/19 Preoperative Diagnosis: Anita Ta is a 37 /Para 2/ 1, Gestational Age 37 6/7 weeks with gestational hypertension, mild preeclampsia, advanced maternal age Postoperative Diagnosis: Same Surgeon: HAYDEN STARKEY Anesthesia: epidural Delivery Type: vaginal Findings: Viable female , apgars pending, weight pending Lacerations: none Intact placenta with 3 vessel cord. No nuchal cord, body cord or shoulder dystocia Estimated Blood Loss: 250 ml Complications: None Condition: Stable Description of Procedure: The patient is a 37 /Para 2/ 1,Gestational Age 37 6/7 weeks with gestational hypertension, mild preeclampsia, advanced maternal age who presented for induction of labor due to worsening blood pressures and proteinuria. Labs within normal. BP 1`57/93 on admission. She was admitted and informed consent was obtained. Her labor course was remarkable for misoprostol x 3 and AROM with pitocin augmentation. She progressed to complete dilatation and began to push. She was then set up for delivery. The infant's head was delivered atraumatically in the IVIS position. The shoulders and remainder of the 's body were then delivered without difficulty. Upon delivery, the head was held below the level of the perineum and the mouth and nares were bulb suctioned. The cord was doubly clamped and cut and the infant was handed off to the pediatric staff. An intact placenta with 3-vessel cord delivered via singh and there was found to be minimal bleeding.~ Vigorous fundal massage was performed and the fundus was found to be firm. IV oxytocin was given. Examination of the vagina and perineum revealed no lacerations . Following the delivery, sponge, instrument and needle counts were correct. Mom and baby were both in stable condition in the labor suite. Vitals - Labs Vital Signs - I&O Vital Signs Date Time Temp Pulse Resp B/P (MAP) Pulse Ox O2 Delivery O2 Flow Rate FiO2 04/17/19 01:15 91 18 170/78 (108) Room Air 04/17/19 01:00 71 18 132/61 (84) Room Air 04/17/19 00:45 71 18 130/60 (83) Room Air 04/17/19 00:30 67 18 128/58 (81) Room Air 04/17/19 00:15 66 18 115/58 (77) Room Air 04/17/19 00:00 67 18 124/58 (80) 96 Room Air 04/16/19 23:45 77 18 162/77 (105) 96 Room Air 04/16/19 23:30 82 18 147/71 (96) 96 Room Air 04/16/19 23:15 79 18 143/70 (94) 96 Room Air 04/16/19 23:00 77 18 139/72 (94) 96 Room Air 04/16/19 22:45 88 18 151/70 (97) 97 Room Air 04/16/19 22:30 85 18 126/59 (81) 96 Room Air 04/16/19 22:15 98.8 81 18 142/74 (96) 95 Room Air 04/16/19 22:00 81 18 166/78 (107) 96 Room Air 04/16/19 21:45 83 18 151/75 (100) 97 Room Air 04/16/19 21:30 94 18 139/65 (89) 96 Room Air 04/16/19 21:15 98.9 87 18 128/60 (82) 96 Room Air 04/16/19 21:00 86 18 145/83 (103) 96 Room Air 04/16/19 20:50 88 18 151/73 (99) 96 Room Air 04/16/19 20:40 84 18 162/77 (105) 97 Room Air 04/16/19 20:30 89 18 138/67 (90) 97 Room Air 04/16/19 20:20 88 18 169/82 (111) 97 Room Air 04/16/19 20:10 90 18 155/69 (97) 97 Room Air 04/16/19 20:00 87 18 170/77 (108) 97 Room Air 04/16/19 19:46 93 18 149/85 (106) 96 Room Air 04/16/19 19:42 90 18 155/72 (99) 96 Room Air 04/16/19 19:39 98.9 86 18 160/79 (106) 96 Room Air 04/16/19 19:36 98 18 169/79 (109) 96 Room Air 04/16/19 19:33 88 18 173/85 (114) 97 Room Air 04/16/19 19:30 88 18 180/90 (120) 97 Room Air 04/16/19 15:52 98.2 85 18 156/91 (112) Room Air 04/16/19 13:29 97.8 85 18 141/77 (98) Room Air 04/16/19 12:02 98.1 95 18 146/89 (108) Room Air 04/16/19 09:22 86 18 156/93 (114) Room Air 04/16/19 08:24 98.0 04/16/19 08:10 97 18 140/80 (100) Room Air I & O 04/17/19 07:00 Intake Total 4000 ml Balance 4000 ml Labs Laboratory Tests 04/16/19 08:00: Urine Color YELLOW, Urine Clarity CLEAR, Urine pH 6, Urine Specific [place] 1.015L, Urine Protein 19H, Urine Glucose (UA) NEGATIVE, Urine Ketones NEGATIVE, Urine Nitrite NEGATIVE, Urine Bilirubin NEGATIVE, Urine Urobilinogen NORMAL, Urine Leukocyte Esterase 2+H, Urine RBC (Auto) NEGATIVE, Urine RBC NONE, Urine WBC 5-10H, Urine Squamous Epithelial Cells 10-25H, Urine Crystals NONE, Urine Bacteria MODERATEH, Urine Casts NONE, Urine Mucus SMALLH, Urine Culture Indicated YES, Urine Creatinine 178H, Urine Protein/Creatinine Ratio 0.11 04/16/19 08:40: White Blood Count 16.0H, Red Blood Count 3.81L, Hemoglobin 10.3L, Hematocrit 31L , Mean Corpuscular Volume 82, Mean Corpuscular Hemoglobin 27, Mean Corpuscular Hemoglobin Concent 33, Red Cell Distribution Width 14.3, Platelet Count 214, Mean Platelet Volume 11.3H, Neutrophils (%) (Auto) 82H, Lymphocytes (%) (Auto) 11L, Monocytes (%) (Auto) 6, Eosinophils (%) (Auto) 1, Basophils (%) (Auto) 0, Neutrophils # (Auto) 13.1H, Lymphocytes # (Auto) 1.7, Monocytes # (Auto) 1.0, Eosinophils # (Auto) 0.1, Basophils # (Auto) 0.0, Sodium Level 139, Potassium Level 3.6, Chloride Level 108H, Carbon Dioxide Level 24, Anion Gap 7, Blood Urea Nitrogen 5L, Creatinine 0.53L, Estimat Glomerular Filtration Rate > 60, BUN/Creatinine Ratio 9, Glucose Level 131H, Calcium Level 8.9, Corrected Calcium 9.7, Total Bilirubin 0.4, Aspartate Amino Transf (AST/SGOT) 13, Alanine Aminotransferase (ALT/SGPT) 12, Alkaline Phosphatase 84, Lactate Dehydrogenase 142, Total Protein 5.4L, Albumin 3.0L HAYDEN STARKEY DO April 17, 2019 02:47
[2019-04-17] MEDS ORDERED: DIBUCAINE (NUPERCAINAL) 1% OINT 30 GM TOP PRN (03:00)
[2019-04-17] MEDS: IBUPROFEN 600 MG (MOTRIN) TAB PO SCH ×4 (03:10→23:16)
[2019-04-17] MEDS: CATHETER FLUSH 10 ML SYR IV SCH (04:23)
--- NOTE | 2019-04-17 05:00 | NUR ---
Pt moved to PP room via W/C, pt up to void with no concerns, ector care education given and pt assisted back to bed by this RN
[2019-04-17] MEDS: MISOPROSTOL 100 MCG (CYTOTEC) TAB PO SCH ×2 (05:11→05:12)
[2019-04-17] MEDS: ACETAMINOPHEN 500 MG TAB (TYLENOL) PO SCH (05:49)
[2019-04-17] MEDS ORDERED: CATHETER FLUSH 10 ML SYR IV SCH (06:00)
[2019-04-17] MEDS: FERROUS SULF 325 MG (IRON) TAB PO SCH (09:28)
[2019-04-17] MEDS: PRENATAL VITAMIN 1 EA TAB PO SCH (09:28)
--- NOTE | 2019-04-17 10:50 | NUR ---
Pt inquiring about lasix for edema, and states Dr. Leal mentioned giving some. No order on eMAR. Dr. Leal notified, order rec'd for 20mg PO.
[2019-04-17] MEDS ORDERED: FUROSEMIDE 20 MG (LASIX) TAB PO NR (11:15)
--- NOTE | 2019-04-17 13:15 | Anesthesia-Regional Post-Op ---
Regional Patient Condition Mental Status: Alert, Oriented x3 Circulation: Same as Pre-Op Headache: Absent Sensation: Full Recovery Motor Block: Absent Post Op Complications Complications None Follow Up Care/Instructions Patient Instructions None needed. Anesthesia/Patient Condition Patient is doing well, no complaints, stable vital signs, no apparent adverse anesthesia problems. MICHAEL JOHN DO April 17, 2019 13:15
[2019-04-17] MEDS ORDERED: CALCIUM CARBONATE 500 MG (TUMS) TAB.CHEW ONE (23:10)
[2019-04-17] MEDS ORDERED: CALCIUM CARBONATE 500 MG (TUMS) TAB.CHEW PO ONE (23:15)
[2019-04-17] MEDS: DOCUSATE SODIUM 100 MG (COLACE) CAP PO SCH (23:17)
[2019-04-18 05:00] VITALS: BP 137/80
[2019-04-18] MEDS: IBUPROFEN 600 MG (MOTRIN) TAB PO SCH (05:09)
[2019-04-18 06:08] LABS: BASOPHILS % (AUTO) 0 % (0-10); EOSINOPHILS # (AUTO) 0.2 10^3/uL (0.0-0.3); EOSINOPHILS % (AUTO) 2 % (0-10); HEMATOCRIT 30 % (35-52); HEMOGLOBIN 9.7 G/DL (11.5-16.0); LYMPHOCYTES # (AUTO) 2.5 X 10^3 (1.0-4.0); LYMPHOCYTES % (AUTO) 17 % (12-44); MEAN CORPUSCULAR HEMOGLOBIN 27 PG (25-34); MEAN CORPUSCULAR HGB CONC 32 G/DL (32-36); MEAN CORPUSCULAR VOLUME 83 FL (80-99); MEAN PLATELET VOLUME 10.4 FL (7.4-10.4); MONOCYTES % (AUTO) 7 % (0-12); NEUTROPHILS # (AUTO) 10.5 X 10^3 (1.8-7.8); NEUTROPHILS % (AUTO) 74 % (42-75); PLATELET COUNT 224 10^3/uL (130-400); RED CELL DISTRIBUTION WIDTH 14.5 % (10.0-14.5); WHITE BLOOD COUNT 14.2 10^3/uL (4.3-11.0)
[2019-04-18] MEDS: ACETAMINOPHEN 500 MG TAB (TYLENOL) PO SCH (07:25)
--- NOTE | 2019-04-18 07:57 | Postpartum Progress Note ---
Note Note Day # 1 s.p received lasix 20 mg x 1 due to increased painful LE swelling. Better today. BP still labile, but no treatment necessary Subjective: Patient is without complaints. Ambulating, voiding. Tolerating a regular diet without nausea or vomiting. Normal lochia. Pain is well controlled with oral pain medications. breast feeding. [] Objective: 04/17/19 04/17/19 04/18/19 20:24 23:24 05:00 Temp 98.5 98.2 97.8 Pulse 83 102 71 Resp 18 18 18 B/P (MAP) 140/72 (94) 129/77 (94) 137/80 (99) Pulse Ox 96 97 98 O2 Delivery Room Air Room Air Room Air Laboratory Tests Test 04/18/19 06:00 Range/Units White Blood Count 14.2 H 4.3-11.0 10^3/uL Red Blood Count 3.61 L 4.35-5.85 10^6/uL Hemoglobin 9.7 L 11.5-16.0 G/DL Hematocrit 30 L 35-52 % Mean Corpuscular Volume 83 80-99 FL Mean Corpuscular Hemoglobin 27 25-34 PG Mean Corpuscular Hemoglobin Concent 32 32-36 G/DL Red Cell Distribution Width 14.5 10.0-14.5 % Platelet Count 224 130-400 10^3/uL Mean Platelet Volume 10.4 7.4-10.4 FL Neutrophils (%) (Auto) 74 42-75 % Lymphocytes (%) (Auto) 17 12-44 % Monocytes (%) (Auto) 7 0-12 % Eosinophils (%) (Auto) 2 0-10 % Basophils (%) (Auto) 0 0-10 % Neutrophils # (Auto) 10.5 H 1.8-7.8 X 10^3 Lymphocytes # (Auto) 2.5 1.0-4.0 X 10^3 Monocytes # (Auto) 1.0 0.0-1.0 X 10^3 Eosinophils # (Auto) 0.2 0.0-0.3 10^3/uL Basophils # (Auto) 0.0 0.0-0.1 10^3/uL Physical Exam: General - Alert and oriented, no apparent distress Abdomen - Soft, appropriately tender to palpation, non-distended, fundus firm at umbilicus Extremities - 2+ edema, negative Kenna's bilaterally [] Assessment: 1. post- day # 1, status post spont vaginal delivery. Recovering well, hemodynamically stable 2. Acute blood loss and iron def anemia 3. mild preeclampsia, improving 4. advanced maternal age Plan: Routine care. Encourage breast feeding. Encourage ambulation. Ferrous sulfate supplementation. Plan for discharge [] Vitals - Labs Vital Signs - I&O Vital Signs Date Time Temp Pulse Resp B/P (MAP) Pulse Ox O2 Delivery O2 Flow Rate FiO2 04/18/19 05:00 97.8 71 18 137/80 (99) 98 Room Air 04/17/19 23:24 98.2 102 18 129/77 (94) 97 Room Air 04/17/19 20:24 98.5 83 18 140/72 (94) 96 Room Air 04/17/19 17:05 98.5 86 18 138/82 (100) 98 Room Air 04/17/19 12:28 98.4 82 18 142/65 (90) 98 Room Air 04/17/19 09:25 98.3 81 18 139/84 (102) 98 Room Air Labs Laboratory Tests 04/18/19 06:00: White Blood Count 14.2H, Red Blood Count 3.61L, Hemoglobin 9.7L, Hematocrit 30L, Mean Corpuscular Volume 83, Mean Corpuscular Hemoglobin 27, Mean Corpuscular Hemoglobin Concent 32, Red Cell Distribution Width 14.5, Platelet Count 224, Mean Platelet Volume 10.4, Neutrophils (%) (Auto) 74, Lymphocytes (%) (Auto) 17, Monocytes (%) (Auto) 7, Eosinophils (%) (Auto) 2, Basophils (%) (Auto) 0, Neutrophils # (Auto) 10.5H, Lymphocytes # (Auto) 2.5, Monocytes # (Auto) 1.0, Eosinophils # (Auto) 0.2, Basophils # (Auto) 0.0 Microbiology 04/16/19 Urine Culture - Final, Complete 3 or more isolates HAYDEN STARKEY DO April 18, 2019 07:57
[2019-04-18] MEDS: PRENATAL VITAMIN 1 EA TAB PO SCH (08:28)
[2019-04-18] MEDS: FERROUS SULF 325 MG (IRON) TAB PO SCH (08:28)
[2019-04-18] MEDS: DOCUSATE SODIUM 100 MG (COLACE) CAP PO SCH (08:28)
[2019-04-18] MEDS ORDERED: IBUP-844 PO (10:11)
[2019-04-18] MEDS ORDERED: ACET-77 PO (10:11)
--- NOTE | 2019-04-18 10:13 | Discharge Inst-Women's Service ---
Discharge Inst-Women's Serv Depart Medication/Instructions New, Converted or Re-Newed RX: Transmitted to Pharmacy Final Diagnosis mild preeclampsia vaginal delivery acute blood loss anemia Consults/Follow Up Additional Follow Up: Yes (1 week for BP check) Activity Activity: Activity as Tolerated Driving Instructions: You May Drive NO SMOKING: NO SMOKING Nothing Inside Vagina: No Douching, No [place], No Tampons Diet Discharge Diet: No Restrictions Symptoms to Report to : Pain Increased, Fever Over 101 Degrees F, Vaginal Bleeding Increase, Cramps in Feet or Legs, Vaginal Discharge Foul For Any Problems or Questions: Contact Your Physician HAYDEN STARKEY DO April 18, 2019 10:13
[2019-04-18 10:52] VITALS: BP 146/90
--- NOTE | 2019-04-18 11:25 | NUR ---
Discharge instructions explained, signed and copy to patient. pt verbalized understanding of instructions and denied questions. discussed medications with pt and verbalized understanding. PT to let rn know when she has her prescriptions and rn will discharge pt
--- NOTE | 2019-04-18 15:00 | NUR ---
pt requests discharge at this time. Addendum: 04/18/19 at 1504 by GRISELDA KELLER RN Discharged to room in parent at this time. may be discharged to home later this evening if gets to be discharged otherwise will remain room in parent.
== END 2019-04-18 15:00 | disposition home or self-care (01) | DRG 806 ==
LOC: LDRP 07:46
PROVIDERS: ADMIT Obstetrics & Gynecology; ATTEND Obstetrics & Gynecology
PROC: 3E0DXGC Introduction of Other Therapeutic Substance into Mouth and Pharynx, External Approach (ICD-10-PCS; 2019-04-16)
PROC: 10E0XZZ Delivery of Products of Conception, External Approach (ICD-10-PCS; principal; 2019-04-17)
DX: O14.04 Mild to moderate pre-eclampsia, complicating childbirth (principal); O90.81 Anemia of the puerperium; D62 Acute posthemorrhagic anemia; Z37.0 Single live birth; Z3A.37 37 weeks gestation of pregnancy
CPT/HCPCS: 36415; 80053; 81000; 82570; 83615; 84156; 85025; 86850; 86900; 86901; 87088

== ENCOUNTER 2019-04-22 09:58 | Observation (INO) | payer OTHER ==
[~2019-04-22] VITALS: Ht 177.8 cm; Wt 121.7 kg
[~2019-04-22 09:58] MED LIST changes: +ACET-77 PO; +FERR-84 PO; +IBUP-844 PO
[2019-04-22 10:50] LABS: BASOPHILS % (AUTO) 0 % (0-10); EOSINOPHILS # (AUTO) 0.2 10^3/uL (0.0-0.3); EOSINOPHILS % (AUTO) 2 % (0-10); HEMATOCRIT 30 % (35-52); HEMOGLOBIN 9.5 G/DL (11.5-16.0); LYMPHOCYTES # (AUTO) 2.3 X 10^3 (1.0-4.0); LYMPHOCYTES % (AUTO) 16 % (12-44); MEAN CORPUSCULAR HEMOGLOBIN 27 PG (25-34); MEAN CORPUSCULAR HGB CONC 32 G/DL (32-36); MEAN CORPUSCULAR VOLUME 85 FL (80-99); MEAN PLATELET VOLUME 10.1 FL (7.4-10.4); MONOCYTES % (AUTO) 7 % (0-12); NEUTROPHILS # (AUTO) 10.8 X 10^3 (1.8-7.8); NEUTROPHILS % (AUTO) 75 % (42-75); PLATELET COUNT 296 10^3/uL (130-400); RED CELL DISTRIBUTION WIDTH 14.4 % (10.0-14.5); WHITE BLOOD COUNT 14.4 10^3/uL (4.3-11.0)
--- NOTE | 2019-04-22 11:10 | Diagnostic Imaging Report ---
INDICATION: High blood pressure and chest pain. TIME OF EXAM: 11:03 a.m. COMPARISON: No prior studies are available for comparison. FINDINGS: The heart size is normal. The pulmonary vascularity is unremarkable. The lungs are clear. No infiltrate, effusion or pneumothorax is detected. IMPRESSION: No acute cardiopulmonary process is detected. Dictated by: Dictated on workstation # [id number]
[2019-04-22 11:19] LABS: BAND NEUTROPHILS 3 %; BASOPHILS % (MANUAL) 0 %; EOSINOPHILS % (MANUAL) 1 %; LYMPHOCYTES % (MANUAL) 14 %; MONOCYTES % (MANUAL) 9 %; NEUTROPHILS % (MANUAL) 73 %; POLYCHROMASIA SLIGHT
[2019-04-22 11:31] LABS: BILIRUBIN,URINE NEGATIVE (NEGATIVE); CLARITY,URINE CLEAR; COLOR,URINE YELLOW; GLUCOSE, URINE (UA) NEGATIVE (NEGATIVE); KETONES,URINE NEGATIVE (NEGATIVE); LEUKOCYTE ESTERASE ,URINE 2+ (NEGATIVE); NITRITE,URINE NEGATIVE (NEGATIVE); PH,URINE 6 (5-9); PROTEIN,URINE NEGATIVE (NEGATIVE); UROBILINOGEN,URINE NORMAL (NORMAL)
[2019-04-22 11:35] LABS: ALANINE AMINOTRANSFERASE 38 U/L (0-55); ALBUMIN 3.1 GM/DL (3.2-4.5); ALKALINE PHOSPHATASE 91 U/L (40-136); BILIRUBIN,TOTAL 0.4 MG/DL (0.1-1.0); BUN/CREATININE RATIO 9; CALCIUM 8.5 MG/DL (8.5-10.1); CARBON DIOXIDE 23 MMOL/L (21-32); CHLORIDE 108 MMOL/L (98-107); CREATININE SERUM 0.66 MG/DL (0.60-1.30); GFR ESTIMATED > 60; GLUCOSE 116 MG/DL (70-105); POTASSIUM 3.3 MMOL/L (3.6-5.0); SODIUM 142 MMOL/L (135-145); TOTAL PROTEIN 5.8 GM/DL (6.4-8.2)
[2019-04-22 11:37] LABS: BACTERIA,URINE NEGATIVE /HPF; RBC,URINE 0-2 /HPF; WBC,URINE RARE /HPF
[2019-04-22 12:00] LABS: TSH (THYROID ANALYZER) 1.19 UIU/ML (0.35-4.94)
[2019-04-22] MEDS ORDERED: cefTRIAXone FOR IV USE 1,000 MG in WATER (STERILE) FOR INJECTION 10 ML IV ONE (13:15)
--- NOTE | 2019-04-22 13:22 | ED General ---
General Chief Complaint: Cardiac/General Problems Stated Complaint: SWELLING;HIGH BP;CP;SOA Nursing Triage Note: PATIENT HERE FOR CONCERNS ABOUT UPPER MIDLINE ABDOMINAL PAIN/CP THAT OCCURS WITH PALPATION WELL SOA AND SWELLING. PATIENT ALSO NOTES THAT HER BP HAS BEEN ELEVATED. SHE IS CURRENTLY 5 DAYS . Nursing Sepsis Screen: No Definite Risk Source of Information: Patient Exam Limitations: No Limitations History of Present Illness Date Seen by Provider: Apr 22, 2019 Time Seen by Provider: 10:10 Initial Comments This 38-year-old woman presents to the emergency room with complaints of hypertension, epigastric discomfort, and orthopnea. She is 5 days from a vaginal delivery. She was induced by Dr. Starkey for -induced hypertension. She did not have evidence of preeclampsia. She is hypertensive on arrival as well. She has had some swelling as well. She denies any unilateral calf pain or unequal lower extremity swelling. She generally has not felt well for the last few days. She has had some mild cough. She denies any nausea, vomiting, diarrhea, or constipation. She feels different than she did after delivering her other child. She also has had some intermittent hearing difficulties late in and in the period I discussed the case with Dr. Starkey who reported patient received a dose of Lasix before discharge from the hospital due to swelling. She recommends screening for preeclampsia in the ER. Patient is afebrile. Allergies and Home Medications Allergies Coded Allergies: NKANo Known Allergies (Unverified Allergy, Mild, 12/08/09) Home Medications Acetaminophen 500 Mg Tablet, 1,000 MG PO Q6HR Prescribed by: HAYDEN STARKEY on 04/18/19 1011 Albuterol Unknown Strength Hfa.aer.ad, Unknown Dose IH Q4H PRN for SHORTNESS OF BREATH, (Reported) 1 PUFFS Ferrous Sulfate 325 Mg Tablet, 325 MG PO DAILY, (Reported) Ibuprofen 600 Mg Tablet, 600 MG PO Q6HR Prescribed by: HAYDEN STARKEY on 04/18/19 1011 Lansoprazole Unknown Strength Capsule.dr, Unknown Dose PO AC PRN for HEARTBURN, (Reported) [ Chew] , 1 TAB PO DAILY, (Reported) Patient Home Medication List Home Medication List Reviewed: Yes Review of Systems Review of Systems Constitutional: see HPI EENTM: no symptoms reported Respiratory: see HPI Cardiovascular: see HPI Gastrointestinal: no symptoms reported Genitourinary: see HPI : No Musculoskeletal: no symptoms reported Skin: no symptoms reported Psychiatric/Neurological: No Symptoms Reported Hematologic/Lymphatic: No Symptoms Reported Immunological/Allergic: no symptoms reported Past Vkklvfu-Qbfywp-Oybigg Hx Past Med/Social Hx: Reviewed Nursing Past Med/Soc Hx Patient Social History Alcohol Use: Denies Use Recreational Drug Use: No Smoking Status: Never a Smoker 2nd Hand Smoke Exposure: No Recent Foreign Travel: No Contact w/Someone Who Travel: No Recent Infectious Disease Expo: No Recent Hopitalizations: No Immunizations Up To Date Tetanus Booster (TDap): Less than 5yrs PED Vaccines UTD: Yes Date of Influenza Vaccine: Sep 02, 2015 Seasonal Allergies Seasonal Allergies: Yes Past Medical History Surgeries: Yes (BREAST REDUCTTION, lumpectomy in breast x2) Respiratory: Yes Asthma Cardiac: No Neurological: No Reproductive Disorders: No Female Reproductive Disorders: Denies Sexually Transmitted Disease: No HIV/AIDS: No Genitourinary: No Gastrointestinal: No Musculoskeletal: No Endocrine: No HEENT: No Cancer: No Psychosocial: No Integumentary: No Blood Disorders: No Adverse Reaction/Blood Tranf: No Family Medical History Asthma G8 SISTER Cardiovascular disease 19 FATHER Colon cancer 19 FATHER (Colon polyps) Deafness or hearing loss 19 FATHER Dementia Diabetes mellitus FH: breast cancer 19 MOTHER Hypertension G8 SISTER Myocardial infarction 19 FATHER No Family History of: AIDS Abdominal aortic aneurysm Selden's disease Alcoholism Alzheimer's disease Aphasia Arthritis Cancer of mouth Cataracts Completed stroke Congenital disease Congenital heart disease Coronary thrombosis Cystic fibrosis Drug abuse Dysphasia Fibrocystic disease of breast Gastroenteritis Glaucoma Headache disorder Hypercholesterolemia Infertility Kidney disease Neoplasm Not obtainable due to adoption Osteoporosis Parkinson's disease Prostate cancer Psychosocial problem Respiratory disorder Seizure disorder Severe allergy Thyroid disease Tuberculosis Visual disorder Physical Exam Vital Signs Vital Signs - First Documented 04/22/19 04/22/19 04/22/19 10:00 14:18 17:10 Temp 97.4 Pulse 66 Resp 18 B/P (MAP) 165/103 (123) Pulse Ox 99 O2 Delivery Room Air FiO2 21 Capillary Refill : Less Than 3 Seconds Height, Weight, BMI Height: 5'10.00" Weight: 276lbs. 0oz. 125.265732vs; 40.1 BMI Method:Actual General Appearance: No Apparent Distress, WD/WN, Obese HEENT: PERRL/EOMI, Normal ENT Inspection Neck: Normal Inspection; No JVD Respiratory: Lungs Clear, Normal Breath Sounds, No Accessory Muscle Use, No Respiratory Distress Cardiovascular: Regular Rate, Rhythm, No Murmur, Other (Trace lower extremity edema) Gastrointestinal: Normal Bowel Sounds, Soft, Tenderness (Minimal in the epigastrium) Extremity: Normal Capillary Refill, Normal Inspection, No Calf Tenderness, No Pedal Edema, Other (Negative Kenna) Neurologic/Psychiatric: Alert, Oriented x3, No Motor/Sensory Deficits, Normal Mood/Affect, blood donor unit assistant II-XII Norm as Tested Skin: Normal Color, Warm/Dry Focused Exam Lactate Level 04/22/19 13:35: Lactic Acid Level 0.96 Progress/Results/Core Measures Suspected Sepsis Recent Fever Within 48 Hours: No Infection Criteria Present: Suspected New Infection New/Unexplained Altered Menta: No Sepsis Screen: No Definite Risk SIRS Temperature:97.4 Pulse: 66 Respiratory Rate: 18 Laboratory Tests 04/22/19 10:41: White Blood Count 14.4H Blood Pressure 165 /103 Mean: 123 04/22/19 13:35: Lactic Acid Level 0.96 Laboratory Tests 04/22/19 10:41: Creatinine 0.66, Platelet Count 296, Total Bilirubin 0.4 Results/Orders Lab Results Laboratory Tests Test 04/22/19 10:20 04/22/19 10:41 04/22/19 10:45 04/22/19 10:46 Range/Units Glucometer 150 H 70-110 MG/DL White Blood Count 14.4 H 4.3-11.0 10^3/uL Red Blood Count 3.52 L 4.35-5.85 10^6/uL Hemoglobin 9.5 L 11.5-16.0 G/DL Hematocrit 30 L 35-52 % Mean Corpuscular Volume 85 80-99 FL Mean Corpuscular Hemoglobin 27 25-34 PG Mean Corpuscular Hemoglobin Concent 32 32-36 G/DL Red Cell Distribution Width 14.4 10.0-14.5 % Platelet Count 296 130-400 10^3/uL Mean Platelet Volume 10.1 7.4-10.4 FL Neutrophils (%) (Auto) 75 42-75 % Lymphocytes (%) (Auto) 16 12-44 % Monocytes (%) (Auto) 7 0-12 % Eosinophils (%) (Auto) 2 0-10 % Basophils (%) (Auto) 0 0-10 % Neutrophils # (Auto) 10.8 H 1.8-7.8 X 10^3 Lymphocytes # (Auto) 2.3 1.0-4.0 X 10^3 Monocytes # (Auto) 1.0 0.0-1.0 X 10^3 Eosinophils # (Auto) 0.2 0.0-0.3 10^3/uL Basophils # (Auto) 0.0 0.0-0.1 10^3/uL Neutrophils % (Manual) 73 % Lymphocytes % (Manual) 14 % Monocytes % (Manual) 9 % Eosinophils % (Manual) 1 % Basophils % (Manual) 0 % Band Neutrophils 3 % Polychromasia SLIGHT Sodium Level 142 135-145 MMOL/L Potassium Level 3.3 L 3.6-5.0 MMOL/L Chloride Level 108 H 98-107 MMOL/L Carbon Dioxide Level 23 21-32 MMOL/L Anion Gap 11 5-14 MMOL/L Blood Urea Nitrogen 6 L 7-18 MG/DL Creatinine 0.66 0.60-1.30 MG/DL Estimat Glomerular Filtration Rate > 60 BUN/Creatinine Ratio 9 Glucose Level 116 H 70-105 MG/DL Calcium Level 8.5 8.5-10.1 MG/DL Corrected Calcium 9.2 8.5-10.1 MG/DL Total Bilirubin 0.4 0.1-1.0 MG/DL Aspartate Amino Transf (AST/SGOT) 29 5-34 U/L Alanine Aminotransferase (ALT/SGPT) 38 0-55 U/L Alkaline Phosphatase 91 40-136 U/L C-Reactive Protein High Sensitivity 11.30 H 0.00-0.50 MG/DL B-Type Natriuretic Peptide 438.4 H <100.0 PG/ML Total Protein 5.8 L 6.4-8.2 GM/DL Albumin 3.1 L 3.2-4.5 GM/DL TSH Ruffin Testing 1.19 0.35-4.94 UIU/ML Urine Color YELLOW Urine Clarity CLEAR Urine pH 6 5-9 Urine Specific [place] 1.010 L 1.016-1.022 Urine Protein 10 6-12 MG/DL Urine Glucose (UA) NEGATIVE NEGATIVE Urine Ketones NEGATIVE NEGATIVE Urine Nitrite NEGATIVE NEGATIVE Urine Bilirubin NEGATIVE NEGATIVE Urine Urobilinogen NORMAL NORMAL MG/DL Urine Leukocyte Esterase 2+ H NEGATIVE Urine RBC (Auto) 5+ H NEGATIVE Urine RBC 0-2 /HPF Urine WBC RARE /HPF Urine Squamous Epithelial Cells NONE /HPF Urine Crystals NONE /LPF Urine Bacteria NEGATIVE /HPF Urine Casts NONE /LPF Urine Mucus NEGATIVE /LPF Urine Culture Indicated NO Urine Creatinine 49 30-125 MG/DL Urine Protein/Creatinine Ratio 0.20 Lipase 21 8-78 U/L Test 04/22/19 13:35 Range/Units Lactic Acid Level 0.96 0.50-2.00 MMOL/L My Orders Orders - OBDULIO CAMARA MD BNP (04/22/19 10:10) Cbc With Automated Diff (04/22/19 10:10) Comprehensive Metabolic Panel (04/22/19 10:10) Hs C Reactive Protein (04/22/19 10:10) Ua Culture If Indicated (04/22/19 10:10) Chest Pa/Lat (2 View) (04/22/19 10:10) Thyroid Analyzer (04/22/19 10:17) Ekg Tracing (04/22/19 10:17) Monitor-Rhythm Ecg Trace Only (04/22/19 10:17) Urine [place] Prot Creat W/Ratio (04/22/19 10:21) Manual Differential (04/22/19 10:41) Blood Culture (04/22/19 12:39) Lactic Acid Analyzer (04/22/19 12:39) Ceftriaxone For Iv Use (Rocephin For I (04/22/19 13:15) Lipase (04/22/19 13:42) Lidocaine 2% Viscous 15 Ml (Xylocaine Vi (04/22/19 14:00) Antacid Suspension (Mylanta Suspension (04/22/19 14:00) Medications Given in ED Current Medications Medications Dose Ordered Sig/Kurtis Route Start Time Stop Time Status Last Admin Dose Admin Ceftriaxone Sodium 1000 mg/ Sterile Water 10 ml @ 200 mls/hr ONCE ONCE IV 04/22/19 13:15 04/22/19 13:17 DC 04/22/19 14:04 200 MLS/HR Vital Signs/I&O 04/22/19 04/22/19 04/22/19 04/22/19 10:00 14:15 14:18 14:36 Temp 97.4 97.4 98.8 Pulse 66 66 79 Resp 18 18 20 B/P (MAP) 165/103 (123) 165/103 (123) 155/90 (111) Pulse Ox 99 99 98 97 O2 Delivery Room Air Room Air 04/22/19 04/22/19 04/22/19 04/22/19 15:45 16:00 16:00 16:57 Temp 99.8 Pulse 63 73 Resp 17 B/P (MAP) 146/103 (117) 146/103 (117) Pulse Ox 98 98 O2 Delivery Room Air Room Air 04/22/19 04/22/19 17:10 18:00 Pulse 66 82 Resp 24 B/P (MAP) 118/63 (81) Pulse Ox 99 O2 Delivery Room Air FiO2 21 Capillary Refill : Less Than 3 Seconds Blood Pressure Mean: 123 Progress Note : Progress Note Case was discussed with Dr. Starkey who recommended ruling out preeclampsia. Workup was not consistent with preeclampsia. Blood pressure trended down during her ER visit without any particular treatment. Multiple abnormalities were noted on the workup. She had a leukocytosis and there was questionable infiltrate in the right lower lung. X-ray was read negative, but I have concerns about possible early pneumonia. Blood cultures were drawn and antibiotics were initiated. Patient also had hypertension with elevated BNP. This was discussed with Dr. Alba who felt it appropriate to rule out cardiomyopathy. He recommended admission and echocardiogram. Patient had some mild epigastric discomfort and tenderness which may not be related to her other symptoms. GI cocktail was trialed but did not improve her pain. Antiacid therapy was ordered at admission. ECG Initial ECG Impression Date: Apr 22, 2019 Initial ECG Impression Time: 11:13 Initial ECG Rate: 64 Initial ECG Rhythm: Normal Sinus Initial ECG Intervals: Normal Initial ECG Impression: Normal Comment Normal sinus rhythm with no ST elevation or depression. No abnormal intervals or axis deviation. Diagnostic Imaging Diagonstic Imaging: Xray Plain Films/CT/US/NM/MRI: chest Comments Chest x-ray viewed by me and report reviewed. See report below: NAME: CASTRO PEREIRA [employer] REC#: [id number] PT STATUS: ADM Zaina : 1980 PHYSICIAN: OBDULIO CAMARA MD ADMIT DATE: 04/22/19/ICU Signed Date of Exam: 04/22/19 CHEST PA/LAT (2 VIEW) INDICATION: High blood pressure and chest pain. TIME OF EXAM: 11:03 a.m. COMPARISON: No prior studies are available for comparison. FINDINGS: The heart size is normal. The pulmonary vascularity is unremarkable. The lungs are clear. No infiltrate, effusion or pneumothorax is detected. IMPRESSION: No acute cardiopulmonary process is detected. Dictated by: Dictated on workstation # [id number] Dict: 04/22/19 1107 Trans: 04/22/19 1600 Interpreted by: LORY CRUZ MD Electronically signed by: LORY CRUZ MD 04/22/19 1600 Departure Communication (Admissions) Time/Spoke to Admitting Phy: 12:34 Dr. Do Ledesma 12:36 Dr. Starkey 13:18 Dr. Alba 12:29 Impression Primary Impression: Orthopnea Additional Impressions: Right lower lobe pulmonary infiltrate hypertension Disposition: ADMITTED INPATIENT Condition: Improved Admissions Decision to Admit Reason: Admit from ER (General) Decision to Admit/Date: Apr 22, 2019 Time/Decision to Admit Time: 12:30 Departure-Patient Inst. Referrals: NANNETTE VANEGAS DO (PCP/Family) Primary Care Physician Copy Copies To 1: NANNETTE VANEGAS JOSHUA T MD Apr 22, 2019 13:22
--- NOTE | 2019-04-22 13:23 | History & Physical-Hospitalist ---
History of Present Illness HPI/Chief Complaint CC: Dyspnea HPI: This is a 38yoWF clinic patient of Dr Correa who is 5 days post from delivering a healthy girl who presented to the ER after elevated BP noted at clinic when baby had her post delivery check and it was very high and she had increased dyspnea since yesterday. Patient was found to have elevated BNP and pulmonary edema on labs and CXR respectively and possible infiltrate so Drs Callie, Parth and Elvis are all consulted and patient will be admitted to [facility] for close monitoring and check ECHO. No pain is reported except upper stomach region and right lower chest area. Patient had no issues after delivery but she was sleeping in the chair while admitted post delivery. Source: patient, family, RN/MD, old records Exam Limitations: no limitations Date Seen 04/22/19 Time Seen by a Provider: 13:00 Attending Physician Jesika Morales DO Referring Physician Date of Admission Home Medications & Allergies Home Medications Reviewed patient Home Medication Reconciliation performed by pharmacy medication reconciliations life science technician and/or nursing. Patients Allergies have been reviewed. Allergies Allergies Coded Allergies NKANo Known Allergies (Unverified Allergy, Mild, 12/08/09) Past Qfljimm-Jgogkq-Ylguhm Hx Past Med/Social Hx: Reviewed Nursing Past Med/Soc Hx, Reviewed and Corrections made Patient Social History Marrital Status: Employed/Student: employed ([employer] Alcohol Use: Denies Use Recreational Drug Use: No Smoking Status: Never a Smoker 2nd Hand Smoke Exposure: No Recent Foreign Travel: No Contact w/other who traveled: No Recent Hopitalizations: No Recent Infectious Disease Expo: No Immunizations Up To Date Tetanus Booster (TDap): Less than 5yrs Pediatric: Yes Date of Influenza Vaccine: Sep 02, 2015 Seasonal Allergies Seasonal Allergies: Yes Past Medical History Reproductive: No Sexually Transmitted Disease: No HIV/AIDS: No Female Reproductive Disorders: Denies Gastrointestinal: Gastroesophageal Reflux Psychosocial: Depression History of Blood Disorders: No Adverse Reaction to Blood Henry: No Family History Asthma G8 SISTER Cardiovascular disease 19 FATHER Colon cancer 19 FATHER (Colon polyps) Deafness or hearing loss 19 FATHER Dementia Diabetes mellitus FH: breast cancer 19 MOTHER Hypertension G8 SISTER Myocardial infarction 19 FATHER No Family History of: AIDS Abdominal aortic aneurysm [place]'s disease Alcoholism Alzheimer's disease Aphasia Arthritis Cancer of mouth Cataracts Completed stroke Congenital disease Congenital heart disease Coronary thrombosis Cystic fibrosis Drug abuse Dysphasia Fibrocystic disease of breast Gastroenteritis Glaucoma Headache disorder Hypercholesterolemia Infertility Kidney disease Neoplasm Not obtainable due to adoption Osteoporosis Parkinson's disease Prostate cancer Psychosocial problem Respiratory disorder Seizure disorder Severe allergy Thyroid disease Tuberculosis Visual disorder Review of Systems Constitutional: see HPI, malaise, weakness EENTM: no symptoms reported Respiratory: dyspnea on exertion, short of breath Cardiovascular: chest pain Gastrointestinal: no symptoms reported Genitourinary: no symptoms reported Musculoskeletal: no symptoms reported Skin: no symptoms reported Psychiatric/Neurological: No Symptoms Reported All Other Systems Reviewed Negative Unless Noted: Yes Physical Exam Physical Exam Vital Signs Vital Signs - First Documented 04/22/19 10:00 Temp 97.4 Pulse 66 Resp 18 B/P (MAP) 165/103 (123) Pulse Ox 99 Capillary Refill : Less Than 3 Seconds Height, Weight, BMI Height: 5'10.00" Weight: 276lbs. 0oz. 125.588147te; 40.1 BMI Method:Actual General Appearance: No Apparent Distress, WD/WN, Anxious, Chronically ill Eyes: Right Eye Normal Inspection, Right Eye PERRL HEENT: PERRL/EOMI, Normal ENT Inspection, Pharynx Normal, Moist Mucous Membranes Neck: Full Range of Motion, Normal Inspection, Non Tender Respiratory: Chest Non Tender, No Accessory Muscle Use, No Respiratory Distress, Decreased Breath Sounds, Wheezing Cardiovascular: Regular Rate, Rhythm, No Edema, No Gallop, No JVD, No Murmur, Normal Peripheral Pulses, Tachycardia Gastrointestinal: Normal Bowel Sounds, No Organomegaly, No Pulsatile Mass, Non Tender, Soft Back: Normal Inspection, No CVA Tenderness, No Vertebral Tenderness Extremity: Normal Capillary Refill, Normal Inspection, Normal Range of Motion, Non Tender, No Calf Tenderness, No Pedal Edema Neurologic/Psychiatric: Alert, Oriented x3, No Motor/Sensory Deficits, Normal Mood/Affect Skin: Normal Color, Warm/Dry Lymphatic: No Adenopathy Results Results/Procedures Labs Laboratory Tests 04/22/19 10:41 Patient resulted labs reviewed. Assessment/Plan Admission Diagnosis Assessment: Respiratory insufficiency Post pre-eclampsia Infiltrate on CXR Elevated BNP Pulmonary edema GERD Depression Anemia Leukocytosis Hypokalemia Low albumin Plan: Monitor BP Parth [place] in consultations IV diuresis O2 Nebs Monitor closely Admission Status: Inpatient Order (span 2 midnights) Reason for Inpatient Admission: Respiratory insufficiency with elevated BNP will require 3 days in patient Diagnosis/Problems Diagnosis/Problems (1) Respiratory insufficiency Status: Acute (2) Infiltrate noted on imaging study Status: Acute (3) Pulmonary edema Status: Acute Qualifiers: Chronicity: acute Qualified Codes: J81.0 - Acute pulmonary edema (4) Elevated brain natriuretic peptide (BNP) level Status: Acute (5) Pre-eclampsia, Status: Acute (6) Hypertensive urgency Status: Acute (7) Dyspnea Status: Acute Qualifiers: Dyspnea type: dyspnea on exertion Qualified Codes: R06.09 - Other forms of dyspnea (8) Anemia Status: Chronic Qualifiers: Anemia type: unspecified type Qualified Codes: D64.9 - Anemia, unspecified (9) Leukocytosis Status: Acute Qualifiers: Leukocytosis type: leukemoid reaction Qualified Codes: D72.823 - Leukemoid reaction (10) Abnormal albumin Status: Acute ISSAC MATHIS DO Apr 22, 2019 13:22
--- NOTE | 2019-04-22 13:47 | Consultation-Cardiology ---
HPI-Cardiology Cardiology Consultation: Date of Consultation 04/22/19 Time Seen by a Provider: 12:45 Date of Admission Attending Physician Admitting Physician Jesika Shields DO Consulting Physician SHIKHA EDMOND MD, MA, FACP, FACC, FSCAI, CCDS Physician requesting consult: Dr Ghotra HPI: Chief Complaint: CC: Shortness of breath HPI: 38 yo woman with shortness of breath since giving about 5 days ago (). Was diagnosed with hypertension in the 3rd trimester and labor was induced. She does not report cp or palp or syncope. Has gen malaise. Has had a productive cough. Denies fever or chills. Notes mild ankle swelling Review of Systems-Cardiology Review of Systems Constitutional: As described under HPI Eyes: No vision change Ears/Nose/Throat: No ear discharge, No nasal drainage, No recent hearing loss Respiratory: As described under HPI Cardiovascular: As described under HPI Gastrointestinal: No constipation, No diarrhea, No vomiting Genitourinary: No hematuria, No urine frequency changes Musculoskeletal: No back pain, No joint pain Skin: No rash, No ulcerations Psychiatric/Neurological: No seizure, No focal weakness, No syncope Hematologic: No bleeding abnormalities All Other Systems Reviewed Negative Unless Noted: Yes [id number] Hx Patient Social History Marrital Status: Employed/Student: employed ([employer]) Alcohol Use: Denies Use Recreational Drug Use: No Smoking Status: Never a Smoker 2nd Hand Smoke Exposure: No Recent Foreign Travel: No Recent Infectious Disease Expo: No Hospitalization with Isolation: Denies Immunizations Up To Date Tetanus Booster (TDap): Less than 5yrs Date of Influenza Vaccine: Sep 02, 2015 Past Medical History PMH As described under Assessment. Family Medical History Family History: Asthma G8 SISTER Cardiovascular disease 19 FATHER Colon cancer 19 FATHER (Colon polyps) Deafness or hearing loss 19 FATHER Dementia Diabetes mellitus FH: breast cancer 19 MOTHER Hypertension G8 SISTER Myocardial infarction 19 FATHER No Family History of: AIDS Abdominal aortic aneurysm Sherrill's disease Alcoholism Alzheimer's disease Aphasia Arthritis Cancer of mouth Cataracts Completed stroke Congenital disease Congenital heart disease Coronary thrombosis Cystic fibrosis Drug abuse Dysphasia Fibrocystic disease of breast Gastroenteritis Glaucoma Headache disorder Hypercholesterolemia Infertility Kidney disease Neoplasm Not obtainable due to adoption Osteoporosis Parkinson's disease Prostate cancer Psychosocial problem Respiratory disorder Seizure disorder Severe allergy Thyroid disease Tuberculosis Visual disorder Allergies and Home Medications Allergies Coded Allergies: NKANo Known Allergies (Unverified Allergy, Mild, 12/08/09) Home Medications Acetaminophen 500 Mg Tablet, 1,000 MG PO Q6HR Prescribed by: HAYDEN STARKEY on 04/18/19 1011 Albuterol Unknown Strength Hfa.aer.ad, Unknown Dose IH Q4H PRN for SHORTNESS OF BREATH, (Reported) 1 PUFFS Ferrous Sulfate 325 Mg Tablet, 325 MG PO DAILY, (Reported) Ibuprofen 600 Mg Tablet, 600 MG PO Q6HR Prescribed by: HAYDEN STARKEY on 04/18/19 1011 Lansoprazole Unknown Strength Capsule.dr, Unknown Dose PO AC PRN for HEARTBURN, (Reported) [ Chew] , 1 TAB PO DAILY, (Reported) Patient Home Medication List Home Medication List Reviewed: Yes Physical Exam-Cardiology Physical Exam Vital Signs/I&O 04/22/19 10:00 Temp 97.4 Pulse 66 Resp 18 B/P (MAP) 165/103 (123) Pulse Ox 99 Capillary Refill : Less Than 3 Seconds Constitutional: AAO x 3, well-developed, well-nourished HEENT: EOMI, hearing is well preserved; No xanthelasmas are seen Respiratory: No accessory muscle use; lungs clear to percussion, other (fair to good bilateral air entry) Cardiovascular: regular rate-rhythm, S1 and S2, systolic murmur (soft CHRISTY at card base) Gastrointestinal: No tender; soft; No guarding, No rebound; audible bowel sounds Extremities: No clubbing, No cyanosis, No significant edema Neurologic/Psychiatric: oriented x 3, grossly intact, power is 5/5 both on sides Skin: No rash on exposed areas, No ulcerations on exposed areas Data Review Labs Laboratory Tests 04/22/19 10:20: Glucometer 150H 04/22/19 10:41: White Blood Count 14.4H, Red Blood Count 3.52L, Hemoglobin 9.5L, Hematocrit 30L, Mean Corpuscular Volume 85, Mean Corpuscular Hemoglobin 27, Mean Corpuscular Hemoglobin Concent 32, Red Cell Distribution Width 14.4, Platelet Count 296, Mean Platelet Volume 10.1, Neutrophils (%) (Auto) 75, Lymphocytes (%) (Auto) 16, Monocytes (%) (Auto) 7, Eosinophils (%) (Auto) 2, Basophils (%) (Auto) 0, Neutrophils # (Auto) 10.8H, Lymphocytes # (Auto) 2.3, Monocytes # (Auto) 1.0, Eosinophils # (Auto) 0.2, Basophils # (Auto) 0.0, Neutrophils % (Manual) 73, Lymphocytes % (Manual) 14, Monocytes % (Manual) 9, Eosinophils % (Manual) 1, Basophils % (Manual) 0, Band Neutrophils 3, Polychromasia SLIGHT, Sodium Level 142, Potassium Level 3.3L, Chloride Level 108H, Carbon Dioxide Level 23, Anion Gap 11, Blood Urea Nitrogen 6L, Creatinine 0.66, Estimat Glomerular Filtration Rate > 60, BUN/Creatinine Ratio 9, Glucose Level 116H, Calcium Level 8.5, Corrected Calcium 9.2, Total Bilirubin 0.4, Aspartate Amino Transf (AST/SGOT) 29, Alanine Aminotransferase (ALT/SGPT) 38, Alkaline Phosphatase 91, C-Reactive Protein High Sensitivity 11.30H, B-Type Natriuretic Peptide 438.4H, Total Protein 5.8L, Albumin 3.1L, TSH [place] Testing 1.19 04/22/19 10:45: Urine Color YELLOW, Urine Clarity CLEAR, Urine pH 6, Urine Specific [place] 1.010L, Urine Protein 10, Urine Glucose (UA) NEGATIVE, Urine Ketones NEGATIVE, Urine Nitrite NEGATIVE, Urine Bilirubin NEGATIVE, Urine Urobilinogen NORMAL, Urine Leukocyte Esterase 2+H, Urine RBC (Auto) 5+H, Urine RBC 0-2, Urine WBC RARE, Urine Squamous Epithelial Cells NONE, Urine Crystals NONE, Urine Bacteria NEGATIVE, Urine Casts NONE, Urine Mucus NEGATIVE, Urine Culture Indicated NO, Urine Creatinine 49, Urine Protein/Creatinine Ratio 0.20 Laboratory Tests 04/22/19 10:41 A/P-Cardiology Assessment/Admission Diagnosis Post- shortness of breath and mild CHF or vol overload Hypertension Bronchitis vs pneumonia Anemia of undetermined etiology Discussion and Recomendations * Admit to tele * 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
[2019-04-22] MEDS ORDERED: LIDOCAINE 2% VISCOUS 15 ML UDC PO ONE (14:00)
[2019-04-22] MEDS ORDERED: FUROSEMIDE 40 MG/4 ML INJ (LASIX) IVP NR (14:00)
[2019-04-22] MEDS ORDERED: ANTACID SUSP 30 ML UDC (MYLANTA) PO ONE (14:00)
[2019-04-22 14:18] VITALS: BP 155/90
[2019-04-22] MEDS ORDERED: meTOproloL SUCCINATE 50 MG (TOPROL XL) TAB PO NR (14:36)
[2019-04-22] MEDS ORDERED: KCL 20 MEQ TAB (K-DUR) PO NR (14:37)
[2019-04-22] MEDS ORDERED: MAGNESIUM 1 GM/100 ML IVPB 100 ML IV NR (14:37)
--- NOTE | 2019-04-22 15:02 | Pulmonary Consultation ---
History of Present Illness History of Present Illness Date of Consultation 04/22/19 15:01 Time Seen by Provider: 15:01 Date of Admission Allergies and Home Medications Allergies Coded Allergies: NKANo Known Allergies (Unverified Allergy, Mild, 12/08/09) Home Medications Acetaminophen 500 Mg Tablet, 1,000 MG PO Q6HR Prescribed by: HAYDEN STARKEY on 04/18/19 1011 Albuterol Unknown Strength Hfa.aer.ad, Unknown Dose IH Q4H PRN for SHORTNESS OF BREATH, (Reported) 1 PUFFS Ferrous Sulfate 325 Mg Tablet, 325 MG PO DAILY, (Reported) Ibuprofen 600 Mg Tablet, 600 MG PO Q6HR Prescribed by: HAYDEN STARKEY on 04/18/19 1011 Lansoprazole Unknown Strength Capsule.dr, Unknown Dose PO AC PRN for HEARTBURN, (Reported) [ Chew] , 1 TAB PO DAILY, (Reported) Past Iqorqza-Oluxjk-Nytumd Hx Past Med/Social Hx: Reviewed Nursing Past Med/Soc Hx, Reviewed and Corrections made Patient Social History Alcohol Use: Denies Use Recreational Drug Use: No Smoking Status: Never a Smoker 2nd Hand Smoke Exposure: No Recent Foreign Travel: No Contact w/Someone Who Travel: No Recent Infectious Disease Expo: No Recent Hopitalizations: No Immunizations Up To Date Tetanus Booster (TDap): Less than 5yrs PED Vaccines UTD: Yes Date of Influenza Vaccine: Sep 02, 2015 Seasonal Allergies Seasonal Allergies: Yes Past Medical History Surgeries: Yes (BREAST REDUCTTION, lumpectomy in breast x2) Respiratory: Yes Asthma Cardiac: No Neurological: No Reproductive Disorders: No Female Reproductive Disorders: Denies Sexually Transmitted Disease: No HIV/AIDS: No Genitourinary: No Gastrointestinal: No Gastroesophageal Reflux Musculoskeletal: No Endocrine: No HEENT: No Cancer: No Psychosocial: No Depression Integumentary: No Blood Disorders: No Adverse Reaction/Blood Tranf: No Family Medical History Asthma G8 SISTER Cardiovascular disease 19 FATHER Colon cancer 19 FATHER (Colon polyps) Deafness or hearing loss 19 FATHER Dementia Diabetes mellitus FH: breast cancer 19 MOTHER Hypertension G8 SISTER Myocardial infarction 19 FATHER No Family History of: AIDS Abdominal aortic aneurysm Golden's disease Alcoholism Alzheimer's disease Aphasia Arthritis Cancer of mouth Cataracts Completed stroke Congenital disease Congenital heart disease Coronary thrombosis Cystic fibrosis Drug abuse Dysphasia Fibrocystic disease of breast Gastroenteritis Glaucoma Headache disorder Hypercholesterolemia Infertility Kidney disease Neoplasm Not obtainable due to adoption Osteoporosis Parkinson's disease Prostate cancer Psychosocial problem Respiratory disorder Seizure disorder Severe allergy Thyroid disease Tuberculosis Visual disorder Sepsis Event Evaluation Height, Weight, BMI Height: 5'10.00" Weight: 277lbs. 0.0oz. 125.891714mg; 39.7 BMI Method:Actual Exam Exam Vital Signs Date Time Temp Pulse Resp B/P (MAP) Pulse Ox O2 Delivery O2 Flow Rate FiO2 04/22/19 14:36 97 Room Air 04/22/19 10:00 97.4 66 18 165/103 (123) 99 Height & Weight Height: 5'10.00" Weight: 277lbs. 0.0oz. 125.059475xy; 39.7 BMI Method:Actual General Appearance: No Apparent Distress, WD/WN, Anxious, Chronically ill HEENT: PERRL/EOMI, Normal ENT Inspection, Pharynx Normal, Moist Mucous Membranes Neck: Full Range of Motion, Normal Inspection, Non Tender Respiratory: Chest Non Tender, No Accessory Muscle Use, No Respiratory Distress, Decreased Breath Sounds, Wheezing Cardiovascular: Regular Rate, Rhythm, No Edema, No Gallop, No JVD, No Murmur, Normal Peripheral Pulses, Tachycardia Capillary Refill: Less Than 3 Seconds Extremity: Normal Capillary Refill, Normal Inspection, Normal Range of Motion, Non Tender, No Calf Tenderness, No Pedal Edema Neurologic/Psychiatric: Alert, Oriented x3, No Motor/Sensory Deficits, Normal Mood/Affect Skin: Normal Color, Warm/Dry Lymphatic: No Adenopathy Results Lab Laboratory Tests 04/22/19 10:41 Assessment/Plan Assessment/Plan Respiratory distress Pulmonary edema -Check echo Pneumonia -Continue ALFRED Santos DO Apr 22, 2019 15:02
[2019-04-22] MEDS ORDERED: CALCIUM GLUC. 10% 4.65 MEQ/10 ML VIAL IV PRN (15:30)
[2019-04-22 15:45] VITALS: BP 146/103
[2019-04-22] MEDS ORDERED: MAGNESIUM 1 GM/100 ML IVPB 400 ML IV ONE (15:46)
[2019-04-22 16:00] VITALS: BP 146/103
[2019-04-22] MEDS ORDERED: MAGNESIUM 4 GM/100 ML IVPB 100 ML IV NR (16:15)
[2019-04-22] MEDS: MAGNESIUM SULFATE DRIP 500 ML IV SCH (16:25)
[2019-04-22 17:10] VITALS: BP 165/103
[2019-04-22] MEDS ORDERED: CALCIUM CARBONATE 500 MG (TUMS) TAB.CHEW PO PRN (17:30)
[2019-04-22] MEDS ORDERED: ACETAMINOPHEN 500 MG TAB (TYLENOL) PO PRN (17:30)
[2019-04-22] MEDS ORDERED: MELATONIN 3 MG TABLET PO PRN (17:30)
[2019-04-22] MEDS ORDERED: DOCUSATE SODIUM 100 MG (COLACE) CAP PO PRN (17:30)
[2019-04-22] MEDS ORDERED: ALPRAZolam 0.25 MG (XANAX) TAB PO PRN (17:30)
[2019-04-22] MEDS ORDERED: POLYETHYLENE GLYCOL 17 GM (MIRALAX) PACK PO PRN (17:30)
[2019-04-22] MEDS ORDERED: ONDANSETRON 4 MG/2 ML (SDV) Z0FRAN IVP PRN (17:30)
[2019-04-22] MEDS ORDERED: fentaNYL INJECTION 100 MCG/2 ML AMP IVP PRN (17:30)
[2019-04-22] MEDS ORDERED: diphenhydrAMINE 25 MG TAB (BENADRYL) PO PRN (17:30)
[2019-04-22] MEDS ORDERED: LOPERAMIDE 2 MG (IMODIUM) CAP PO PRN (17:30)
[2019-04-22 18:00] VITALS: BP 118/63
[2019-04-22] MEDS ORDERED: RT-ALBUTEROL SULF 2.5 MG/3 ML PRE-MIX VIAL INH PRN (18:00)
--- NOTE | 2019-04-22 18:13 | Consultation ---
History of Present Illness History of Present Illness Patient Consulted On(jaime/time) 04/22/19 18:08 Date Seen by Provider: Apr 22, 2019 Time Seen by Provider: 16:08 Reason for Visit: "not feeling well". Elevated BP History of Present Illness {Patient went to daughter's pediatric appointment today. She delivered 5 days ago. Induced due to gestational hypertension, mild preeclampsia but did not require blood pressure treatments during labor or after. Blood pressures were labile but not treatment level. Today she states she just didn't feel well. Had a headache. BP in the peds office was 170/100. Was complaining that she could not lie down without shortness of breath. Labs wnl, no proteinuria, but clinically preeclamptic with possible pulmonary edema Allergies and Home Medications Allergies Coded Allergies: NKANo Known Allergies (Unverified Allergy, Mild, 12/08/09) Home Medications Acetaminophen 500 Mg Tablet, 1,000 MG PO Q6HR Prescribed by: HAYDEN STARKEY on 04/18/19 1011 Albuterol Unknown Strength Hfa.aer.ad, Unknown Dose IH Q4H PRN for SHORTNESS OF BREATH, (Reported) 1 PUFFS Ferrous Sulfate 325 Mg Tablet, 325 MG PO DAILY, (Reported) Ibuprofen 600 Mg Tablet, 600 MG PO Q6HR Prescribed by: HAYDEN STARKEY on 04/18/19 1011 Lansoprazole Unknown Strength Capsule.dr, Unknown Dose PO AC PRN for HEARTBURN, (Reported) [ Chew] , 1 TAB PO DAILY, (Reported) Patient Home Medication List Home Medication List Reviewed: Yes Past Rqpwmfg-Ydafre-Uxabhu Hx Past Med/Social Hx: Reviewed Nursing Past Med/Soc Hx, Reviewed and Corrections made Patient Social History Alcohol Use: Denies Use Recreational Drug Use: No Smoking Status: Never a Smoker 2nd Hand Smoke Exposure: No Recent Foreign Travel: No Contact w/Someone Who Travel: No Recent Infectious Disease Expo: No Recent Hopitalizations: No Immunizations Up To Date Tetanus Booster (TDap): Less than 5yrs PED Vaccines UTD: Yes Date of Influenza Vaccine: Sep 02, 2015 Seasonal Allergies Seasonal Allergies: Yes Past Medical History Surgeries: Yes (BREAST REDUCTTION, lumpectomy in breast x2) Respiratory: Yes Asthma Cardiac: No Neurological: No Hx : 2 Hx Para: 2 Hx Total # of Abortions (Sp): 0 Reproductive Disorders: No Female Reproductive Disorders: Denies Sexually Transmitted Disease: No HIV/AIDS: No Genitourinary: No Gastrointestinal: No Gastroesophageal Reflux Musculoskeletal: No Endocrine: No HEENT: No Cancer: No Psychosocial: No Depression Integumentary: No Blood Disorders: No Adverse Reaction/Blood Tranf: No Family Medical History Asthma G8 SISTER Cardiovascular disease 19 FATHER Colon cancer 19 FATHER (Colon polyps) Deafness or hearing loss 19 FATHER Dementia Diabetes mellitus FH: breast cancer 19 MOTHER Hypertension G8 SISTER Myocardial infarction 19 FATHER No Family History of: AIDS Abdominal aortic aneurysm Stearns's disease Alcoholism Alzheimer's disease Aphasia Arthritis Cancer of mouth Cataracts Completed stroke Congenital disease Congenital heart disease Coronary thrombosis Cystic fibrosis Drug abuse Dysphasia Fibrocystic disease of breast Gastroenteritis Glaucoma Headache disorder Hypercholesterolemia Infertility Kidney disease Neoplasm Not obtainable due to adoption Osteoporosis Parkinson's disease Prostate cancer Psychosocial problem Respiratory disorder Seizure disorder Severe allergy Thyroid disease Tuberculosis Visual disorder Review of Systems-General Constitutional: No diaphoresis, No fever; malaise EENTM: hearing loss (hearing change); No blurred vision, No double vision, No vision loss Respiratory: orthopnea, wheezing (history of asthma) Cardiovascular: No chest pain, No edema (received lasix x 1 after delivery due to LE edema) Gastrointestinal: no symptoms reported, other (HAD RUQ pain at end of but that has improved and LFTs wnl) Genitourinary: no symptoms reported Skin: no symptoms reported Psychiatric/Neurological: No Symptoms Reported Physical Exam-General Problems Physical Exam Vital Signs Vital Signs - First Documented 04/22/19 04/22/19 04/22/19 10:00 14:18 17:10 Temp 97.4 Pulse 66 Resp 18 B/P (MAP) 165/103 (123) Pulse Ox 99 O2 Delivery Room Air FiO2 21 Capillary Refill : Less Than 3 Seconds Laboratory Tests Test 04/22/19 10:20 04/22/19 10:41 04/22/19 10:45 04/22/19 10:46 Range/Units Glucometer 150 H 70-110 MG/DL White Blood Count 14.4 H 4.3-11.0 10^3/uL Red Blood Count 3.52 L 4.35-5.85 10^6/uL Hemoglobin 9.5 L 11.5-16.0 G/DL Hematocrit 30 L 35-52 % Mean Corpuscular Volume 85 80-99 FL Mean Corpuscular Hemoglobin 27 25-34 PG Mean Corpuscular Hemoglobin Concent 32 32-36 G/DL Red Cell Distribution Width 14.4 10.0-14.5 % Platelet Count 296 130-400 10^3/uL Mean Platelet Volume 10.1 7.4-10.4 FL Neutrophils (%) (Auto) 75 42-75 % Lymphocytes (%) (Auto) 16 12-44 % Monocytes (%) (Auto) 7 0-12 % Eosinophils (%) (Auto) 2 0-10 % Basophils (%) (Auto) 0 0-10 % Neutrophils # (Auto) 10.8 H 1.8-7.8 X 10^3 Lymphocytes # (Auto) 2.3 1.0-4.0 X 10^3 Monocytes # (Auto) 1.0 0.0-1.0 X 10^3 Eosinophils # (Auto) 0.2 0.0-0.3 10^3/uL Basophils # (Auto) 0.0 0.0-0.1 10^3/uL Neutrophils % (Manual) 73 % Lymphocytes % (Manual) 14 % Monocytes % (Manual) 9 % Eosinophils % (Manual) 1 % Basophils % (Manual) 0 % Band Neutrophils 3 % Polychromasia SLIGHT Sodium Level 142 135-145 MMOL/L Potassium Level 3.3 L 3.6-5.0 MMOL/L Chloride Level 108 H 98-107 MMOL/L Carbon Dioxide Level 23 21-32 MMOL/L Anion Gap 11 5-14 MMOL/L Blood Urea Nitrogen 6 L 7-18 MG/DL Creatinine 0.66 0.60-1.30 MG/DL Estimat Glomerular Filtration Rate > 60 BUN/Creatinine Ratio 9 Glucose Level 116 H 70-105 MG/DL Calcium Level 8.5 8.5-10.1 MG/DL Corrected Calcium 9.2 8.5-10.1 MG/DL Total Bilirubin 0.4 0.1-1.0 MG/DL Aspartate Amino Transf (AST/SGOT) 29 5-34 U/L Alanine Aminotransferase (ALT/SGPT) 38 0-55 U/L Alkaline Phosphatase 91 40-136 U/L C-Reactive Protein High Sensitivity 11.30 H 0.00-0.50 MG/DL B-Type Natriuretic Peptide 438.4 H <100.0 PG/ML Total Protein 5.8 L 6.4-8.2 GM/DL Albumin 3.1 L 3.2-4.5 GM/DL TSH [place] Testing 1.19 0.35-4.94 UIU/ML Urine Color YELLOW Urine Clarity CLEAR Urine pH 6 5-9 Urine Specific [place] 1.010 L 1.016-1.022 Urine Protein 10 6-12 MG/DL Urine Glucose (UA) NEGATIVE NEGATIVE Urine Ketones NEGATIVE NEGATIVE Urine Nitrite NEGATIVE NEGATIVE Urine Bilirubin NEGATIVE NEGATIVE Urine Urobilinogen NORMAL NORMAL MG/DL Urine Leukocyte Esterase 2+ H NEGATIVE Urine RBC (Auto) 5+ H NEGATIVE Urine RBC 0-2 /HPF Urine WBC RARE /HPF Urine Squamous Epithelial Cells NONE /HPF Urine Crystals NONE /LPF Urine Bacteria NEGATIVE /HPF Urine Casts NONE /LPF Urine Mucus NEGATIVE /LPF Urine Culture Indicated NO Urine Creatinine 49 30-125 MG/DL Urine Protein/Creatinine Ratio 0.20 Lipase 21 8-78 U/L Test 04/22/19 13:35 Range/Units Lactic Acid Level 0.96 0.50-2.00 MMOL/L General Appearance: no apparent distress (upon my exam she states she is feeling much better. She is sitting up in bed and states breathing is much better. ) Neck: non-tender Respiratory: chest non-tender, lungs clear, normal breath sounds, no respiratory distress, no accessory muscle use Cardiovascular: regular rate, rhythm; No no edema (1-2+ edema, non pitting); other (mother reports LE edema is much better. ) Extremities: No no calf tenderness; other (DTR decreased but is receiving magnesium) Neurologic/Psychiatric: alert, normal mood/affect, oriented x 3 Skin: normal color, warm/dry Assessment/Plan Assessment/Plan Admission Diagnosis/Plan 1. Post preeclampsia, severe hypertension - continue Magnesium at preeclampsia rate (4 gram load then 2 grams per hour x 24 hours) urine output indicates improvement already. 4 liters out. 2. severe hypertension - BP now 118/78 3. 5 days post Echo wnl (EF 55/65%) Would continue IV magnesium x 24 hours and then dc. Po metoprolol as prescribed. She has an appointment with me on . suspect that she could dc home tomorrow or Monday and follow up with me on . I will be out of town on Monday, but would support discharge on Monday or Wednesday at the latest. Admission Status: Other Clinical Quality Measures DVT/VTE Risk/Contraindication: Risk Factor Score Per Nursin RFS Level Per Nursing on Admit: 3=High HAYDEN STARKEY DO Apr 22, 2019 18:13
[2019-04-22 20:00] VITALS: BP 132/75
[2019-04-22] MEDS: SENNA W/DOCUSATE (SENOKOT S) TABLET PO SCH (21:46)
[2019-04-22] MEDS: HYDROcodone/APAP 5 MG/325 MG (LORTAB) TAB PO PRN (21:46)
[2019-04-23] VITALS (11 sets, daily range): BP systolic 138–165; BP diastolic 71–100
[2019-04-23] MEDS: MAGNESIUM SULFATE DRIP 500 ML IV SCH ×2 (03:17→13:06)
[2019-04-23 04:02] LABS: BASOPHILS % (AUTO) 0 % (0-10); EOSINOPHILS # (AUTO) 0.3 10^3/uL (0.0-0.3); EOSINOPHILS % (AUTO) 2 % (0-10); HEMATOCRIT 32 % (35-52); LYMPHOCYTES % (AUTO) 15 % (12-44); MEAN CORPUSCULAR HEMOGLOBIN 26 PG (25-34); MEAN CORPUSCULAR HGB CONC 31 G/DL (32-36); MEAN CORPUSCULAR VOLUME 84 FL (80-99); MEAN PLATELET VOLUME 9.8 FL (7.4-10.4); MONOCYTES # (AUTO) 1.1 X 10^3 (0.0-1.0); MONOCYTES % (AUTO) 8 % (0-12); NEUTROPHILS % (AUTO) 75 % (42-75); PLATELET COUNT 341 10^3/uL (130-400); RED CELL DISTRIBUTION WIDTH 14.7 % (10.0-14.5); WHITE BLOOD COUNT 13.4 10^3/uL (4.3-11.0)
[2019-04-23] MEDS: HYDROcodone/APAP 5 MG/325 MG (LORTAB) TAB PO PRN (04:18)
[2019-04-23 04:20] LABS: ALANINE AMINOTRANSFERASE 39 U/L (0-55); ALBUMIN 3.2 GM/DL (3.2-4.5); ALKALINE PHOSPHATASE 91 U/L (40-136); BILIRUBIN,TOTAL 0.4 MG/DL (0.1-1.0); BUN/CREATININE RATIO 11; CALCIUM 8.1 MG/DL (8.5-10.1); CARBON DIOXIDE 26 MMOL/L (21-32); CHLORIDE 104 MMOL/L (98-107); CREATININE SERUM 0.63 MG/DL (0.60-1.30); GFR ESTIMATED > 60; GLUCOSE 100 MG/DL (70-105); MAGNESIUM 4.2 MG/DL (1.8-2.4); POTASSIUM 3.3 MMOL/L (3.6-5.0); SODIUM 141 MMOL/L (135-145); TOTAL PROTEIN 5.9 GM/DL (6.4-8.2)
--- NOTE | 2019-04-23 06:04 | Pulmonary Progress Note ---
Sepsis Event Evaluation Height, Weight, BMI Height: 5'10.00" Weight: 277lbs. 0.0oz. 125.426429sm; 39.7 BMI Method:Actual Focused Exam Lactate Level 04/22/19 13:35: Lactic Acid Level 0.96 Exam Exam Vital Signs Date Time Temp Pulse Resp B/P (MAP) Pulse Ox O2 Delivery O2 Flow Rate FiO2 04/23/19 05:00 60 19 165/100 (121) 99 Nasal Cannula 2.00 04/23/19 04:00 66 14 144/85 (104) 99 Nasal Cannula 2.00 04/23/19 03:00 60 16 146/86 (106) 99 Nasal Cannula 2.00 04/23/19 02:14 62 12 141/82 (101) 96 Nasal Cannula 2.00 04/23/19 01:00 63 04/23/19 00:00 Room Air 04/23/19 00:00 98.2 78 25 138/75 (96) 98 Room Air 04/22/19 21:00 Room Air 04/22/19 20:00 Room Air 04/22/19 20:00 97.3 71 14 132/75 (94) 97 Room Air 04/22/19 19:00 91 04/22/19 18:00 82 24 118/63 (81) Room Air 04/22/19 17:10 66 99 21 04/22/19 16:57 73 04/22/19 16:00 98 Room Air 04/22/19 16:00 99.8 63 17 146/103 (117) 98 Room Air 04/22/19 15:45 146/103 (117) 04/22/19 14:36 97 Room Air 04/22/19 14:18 98.8 79 20 155/90 (111) 98 Room Air 04/22/19 14:15 97.4 66 18 165/103 (123) 99 04/22/19 10:00 97.4 66 18 165/103 (123) 99 I & O 04/23/19 07:00 Intake Total 750 ml Output Total 1975 ml Balance -1225 ml Height & Weight Height: 5'10.00" Weight: 277lbs. 0.0oz. 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
[2019-04-23] MEDS ORDERED: FUROSEMIDE 40 MG/4 ML INJ (LASIX) IVP NR (06:45)
[2019-04-23] MEDS ORDERED: KCL 20 MEQ TAB (K-DUR) PO NR (06:45)
[2019-04-23] MEDS: cefTRIAXone FOR IV USE 1,000 MG in WATER (STERILE) FOR INJECTION 10 ML IV SCH (07:36)
--- NOTE | 2019-04-23 07:46 | Cardiology Progress Note ---
Subjective Date Seen by Provider: Apr 23, 2019 Time Seen by Provider: 07:41 Subjective/Events-last exam patient is sitting in bed, feeling better, breathing better. Reporting improvement today. Review of Systems General: No Chills, No Night Sweats, No Fatigue, No Malaise, No Appetite, No O ther HEENT: No Head Aches, No Visual Changes, No Eye Pain, No Ear Pain, No Dys phasia, No Sinus Congestion, No Post Nasal Drip, No Sore Throat, No Other Pulmonary: Dyspnea; No Cough, No Pleuritic Chest Pain, No Other Cardiovascular: Edema; No: Chest Pain, Palpitations, Orthopnea, Paroxysmal Noc. Dyspnea, Lt Headedness, Other Focused Exam Lactate Level 04/22/19 13:35: Lactic Acid Level 0.96 Objective-Cardiology Exam Last Set of Vital Signs Vital Signs 04/22/19 04/23/19 04/23/19 04/23/19 17:10 00:00 06:00 06:45 Temp 98.2 Pulse 57 Resp 13 B/P (MAP) 157/90 (112) Pulse Ox 95 O2 Delivery Nasal Cannula O2 Flow Rate 2.00 FiO2 21 Capillary Refill : Less Than 3 Seconds I&O Intake and Output 04/23/19 00:00 Intake Total 750 ml Output Total 2050 ml Balance -1300 ml Intake Oral 750 ml Output Urine Total 2050 ml Daily Weight Change No General: Alert, Oriented X3, Cooperative HEENT: Atraumatic, PERRLA Neck: Supple, No JVD, No Thyromegaly Lungs: Clear to Auscultation, Normal Air Movement Heart: Regular Rate, Normal S1, Normal S2, No Murmurs Abdomen: Normal Bowel Sounds, Soft, No Tenderness, No Hepatosplenomegaly, No Masses Extremities: No Clubbing, No Cyanosis, Normal Pulses, No Tenderness/Swelling, Other (mild edema) Skin: No Rashes, No Breakdown, No Significant Lesion Neuro: Normal Gait, Normal Speech, Strength at 5/5 X4 Ext, Normal Tone, Sensation Intact Psych/Mental Status: Mental Status NL, Mood NL Results Lab Laboratory Tests 04/22/19 10:41 04/23/19 03:35 A/P-Cardiology Admission Diagnosis Congestive heart failure, acute left ventricular diastolic dysfunction, hypertensive heart disease Hypertension Shortness of breath Assessment/Plan Post- shortness of breath and mild CHF or vol overload, reporting improvement after diuretics. Feeling better, continue on Lasix and Toprol. Hypertension, poor control, monitor response to beta blockers, add lisinopril and monitor tolerance Bronchitis vs pneumonia, managed by Dr. Ledesma Anemia of undetermined etiology Clinical Quality Measures DVT/VTE Risk/Contraindication: Risk Factor Score Per Nursin RFS Level Per Nursing on Admit: 3=High COLEEN KOO MD Apr 23, 2019 07:46
[2019-04-23] MEDS: lisINopril 5 MG (PRINIVIL) TABLET PO SCH (08:37)
[2019-04-23] MEDS: meTOproloL SUCCINATE 50 MG (TOPROL XL) TAB PO SCH (08:37)
[2019-04-23] MEDS: SENNA W/DOCUSATE (SENOKOT S) TABLET PO SCH ×2 (09:33→20:20)
[2019-04-23] MEDS: FERROUS SULF 325 MG (IRON) TAB PO SCH ×2 (09:36→17:35)
[2019-04-23] MEDS ORDERED: ACET-2267 PO (09:48)
[2019-04-23] MEDS ORDERED: IBUP-844 PO (09:48)
[2019-04-23] MEDS ORDERED: RT-ALBUINH IH (09:48)
[2019-04-23] MEDS ORDERED: LANS15CA PO (09:48)
[2019-04-23] MEDS ORDERED: PREN-53 PO (09:48)
--- NOTE | 2019-04-23 10:25 | Progress Note-Hospitalist ---
Subjective HPI/CC On Admission Date Seen by Provider: Apr 23, 2019 Time Seen by Provider: 10:00 CC: Dyspnea HPI: This is a 38yoWF clinic patient of Dr Correa who is 5 days post from delivering a healthy girl who presented to the ER after elevated BP noted at clinic when baby had her post delivery check and it was very high and she had increased dyspnea since yesterday. Patient was found to have elevated BNP and pulmonary edema on labs and CXR respectively and possible infiltrate so Drs Callie, Parth and Elvis are all consulted and patient will be admitted to [facility] for close monitoring and check ECHO. No pain is reported except upper stomach region and right lower chest area. Patient had no issues after delivery but she was sleeping in the chair while admitted post delivery. Subjective/Events-last exam Pt is doing much better massive diuresis has helped with SOB Reviewed all labs and imaging scans Appreciate cardiology, gynecology, and pulmonology Will transfer to 4th floor to ambulate Overall much improved and likely will discharge tomorrow. Review of Systems General: Fatigue Pulmonary: Dyspnea Focused Exam Lactate Level 04/22/19 13:35: Lactic Acid Level 0.96 Objective Exam Vital Signs Vital Signs Date Time Temp Pulse Resp B/P (MAP) Pulse Ox O2 Delivery O2 Flow Rate FiO2 04/23/19 19:47 96.8 70 22 146/71 (96) 96 Nasal Cannula 2.00 04/22/19 17:10 21 Capillary Refill : Less Than 3 Seconds General Appearance: No Apparent Distress, WD/WN, Obese HEENT: PERRL/EOMI, Normal ENT Inspection Neck: Normal Inspection; No JVD Respiratory: Lungs Clear, Normal Breath Sounds, No Accessory Muscle Use, No Respiratory Distress Cardiovascular: Regular Rate, Rhythm, No Murmur, Other (Trace lower extremity edema) Gastrointestinal: Normal Bowel Sounds, Soft, Tenderness (Minimal in the epigastrium) Back: Normal Inspection, No CVA Tenderness, No Vertebral Tenderness Extremity: Normal Capillary Refill, Normal Inspection, No Calf Tenderness, No Pedal Edema, Other (Negative Kenna) Neurologic/Psychiatric: Alert, Oriented x3, No Motor/Sensory Deficits, Normal Mood/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 Assessment/Plan Assessment and Plan Assess & Plan/Chief Complaint Assessment: Respiratory insufficiency Post pre-eclampsia Infiltrate on CXR Elevated BNP Pulmonary edema GERD Depression Anemia Leukocytosis Hypokalemia Low albumin Plan: Monitor BP Parth Tinoco Shaw in consultations IV diuresis O2 Nebs Monitor closely Diagnosis/Problems Diagnosis/Problems (1) Respiratory insufficiency Status: Acute (2) Infiltrate noted on imaging study Status: Acute (3) Pulmonary edema Status: Acute Qualifiers: Chronicity: acute Qualified Codes: J81.0 - Acute pulmonary edema (4) Elevated brain natriuretic peptide (BNP) level Status: Acute (5) Pre-eclampsia, Status: Acute (6) Hypertensive urgency Status: Acute (7) Dyspnea Status: Acute Qualifiers: Dyspnea type: dyspnea on exertion Qualified Codes: R06.09 - Other forms of dyspnea (8) Anemia Status: Chronic Qualifiers: Anemia type: unspecified type Qualified Codes: D64.9 - Anemia, unspecified (9) Leukocytosis Status: Acute Qualifiers: Leukocytosis type: leukemoid reaction Qualified Codes: D72.823 - Leukemoid reaction (10) Abnormal albumin Status: Acute Clinical Quality Measures DVT/VTE Risk/Contraindication: Risk Factor Score Per Nursin RFS Level Per Nursing on Admit: 3=High ISSAC MATHIS DO Apr 23, 2019 10:25
[2019-04-23] MEDS ORDERED: IBUPROFEN 600 MG (MOTRIN) TAB PO PRN (10:45)
[2019-04-23] MEDS ORDERED: ACETAMINOPHEN 500 MG TAB (TYLENOL) PO PRN (10:45)
[2019-04-24 00:30] VITALS: BP 138/68
[2019-04-24 04:49] VITALS: BP 153/74
[2019-04-24] MEDS ORDERED: WATER (STERILE) FOR INJECTION 10 ML ONE (06:23)
[2019-04-24] MEDS ORDERED: cefTRIAXone 1,000 MG IV (ROCEPHIN) VIAL ONE (06:23)
[2019-04-24 06:32] LABS: BASOPHILS % (AUTO) 0 % (0-10); EOSINOPHILS # (AUTO) 0.3 10^3/uL (0.0-0.3); EOSINOPHILS % (AUTO) 3 % (0-10); HEMATOCRIT 32 % (35-52); HEMOGLOBIN 10.2 G/DL (11.5-16.0); LYMPHOCYTES # (AUTO) 1.9 X 10^3 (1.0-4.0); LYMPHOCYTES % (AUTO) 16 % (12-44); MEAN CORPUSCULAR HEMOGLOBIN 27 PG (25-34); MEAN CORPUSCULAR HGB CONC 32 G/DL (32-36); MEAN CORPUSCULAR VOLUME 84 FL (80-99); MEAN PLATELET VOLUME 9.8 FL (7.4-10.4); MONOCYTES % (AUTO) 8 % (0-12); NEUTROPHILS # (AUTO) 8.9 X 10^3 (1.8-7.8); NEUTROPHILS % (AUTO) 73 % (42-75); PLATELET COUNT 322 10^3/uL (130-400); RED CELL DISTRIBUTION WIDTH 14.2 % (10.0-14.5); WHITE BLOOD COUNT 12.2 10^3/uL (4.3-11.0)
[2019-04-24] MEDS: cefTRIAXone FOR IV USE 1,000 MG in WATER (STERILE) FOR INJECTION 10 ML IV SCH (06:42)
[2019-04-24] MEDS: FERROUS SULF 325 MG (IRON) TAB PO SCH (06:43)
[2019-04-24 06:49] LABS: ALANINE AMINOTRANSFERASE 34 U/L (0-55); ALBUMIN 3.1 GM/DL (3.2-4.5); ALKALINE PHOSPHATASE 94 U/L (40-136); BILIRUBIN,TOTAL 0.4 MG/DL (0.1-1.0); BUN/CREATININE RATIO 14; CALCIUM 7.9 MG/DL (8.5-10.1); CARBON DIOXIDE 27 MMOL/L (21-32); CHLORIDE 101 MMOL/L (98-107); CREATININE SERUM 0.63 MG/DL (0.60-1.30); GFR ESTIMATED > 60; GLUCOSE 108 MG/DL (70-105); POTASSIUM 3.1 MMOL/L (3.6-5.0); SODIUM 139 MMOL/L (135-145)
[2019-04-24] MEDS ORDERED: PRENATAL VITAMIN 1 EA TAB PO SCH (07:00)
--- NOTE | 2019-04-24 07:48 | Pulmonary Progress Note ---
Sepsis Event Evaluation Height, Weight, BMI Height: 5'10.00" Weight: 268lbs. 6.0oz. 121.575677kc; 39.7 BMI Method:Actual Focused Exam Lactate Level 04/22/19 13:35: Lactic Acid Level 0.96 Exam Exam Vital Signs Date Time Temp Pulse Resp B/P (MAP) Pulse Ox O2 Delivery O2 Flow Rate FiO2 04/24/19 04:49 97.7 63 18 153/74 (100) 95 Room Air 04/24/19 00:30 97.8 62 18 138/68 (91) 95 04/23/19 21:32 Room Air 04/23/19 20:40 Room Air 04/23/19 20:19 95 Room Air 04/23/19 19:47 96.8 70 22 146/71 (96) 96 Nasal Cannula 2.00 04/23/19 16:22 98.6 71 20 145/84 (104) 95 Nasal Cannula 2.00 04/23/19 16:00 Room Air 04/23/19 13:30 98.7 73 16 161/95 (117) 96 Nasal Cannula 2.00 04/23/19 13:00 66 04/23/19 12:00 Room Air 04/23/19 12:00 96.8 71 12 147/82 (103) 97 04/23/19 09:00 Room Air 04/23/19 08:00 Room Air 04/23/19 08:00 65 21 150/82 (104) 99 Nasal Cannula 2.00 I & O 04/24/19 07:00 Intake Total 2200 ml Output Total 5600 ml Balance -3400 ml Height & Weight Height: 5'10.00" Weight: 268lbs. 6.0oz. 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
[2019-04-24] MEDS: meTOproloL SUCCINATE 50 MG (TOPROL XL) TAB PO SCH (08:13)
[2019-04-24 08:14] VITALS: BP 138/77
[2019-04-24] MEDS: lisINopril 5 MG (PRINIVIL) TABLET PO SCH (08:14)
[2019-04-24] MEDS ORDERED: KCL 20 MEQ TAB (K-DUR) PO NR (08:45)
[2019-04-24] MEDS ORDERED: PANTOPRAZOLE 20 MG TABLET (PROTONIX) PO PRN (09:00)
[2019-04-24] MEDS: SENNA W/DOCUSATE (SENOKOT S) TABLET PO SCH (09:00)
--- NOTE | 2019-04-24 09:32 | Progress Note-Cardiology ---
Cardiology SOAP Progress Note Subjective: Sitting up in bed eating morning meal. Wants to go home. No c/o CP, palpitations, syncope or near syncope. Feels breathing has improved. Occ lose cough. Objective: I&O/Vital Signs 04/24/19 04/24/19 04/24/19 04/24/19 00:30 04:49 08:14 09:00 Temp 97.8 97.7 98.4 Pulse 62 63 70 Resp 18 18 20 B/P (MAP) 138/68 (91) 153/74 (100) 138/77 (97) Pulse Ox 95 95 96 96 O2 Delivery Room Air Room Air Room Air O2 Flow Rate 0.00 04/24/19 00:00 Intake Total 1350 ml Output Total 1900 ml Balance -550 ml Weight (Pounds): 268 Weight (Ounces): 6.0 Weight (Calculated Kilograms): 121.416230 Constitutional: AAO x 3, well-developed, well-nourished Respiratory: No accessory muscle use; lungs clear to percussion, other (fair to good bilateral air entry) Cardiovascular: regular rate-rhythm, S1 and S2, systolic murmur (soft CHRISTY at card base) Gastrointestional: No tender; soft; No guarding, No rebound; audible bowel sounds Extremities: No clubbing, No cyanosis, No significant edema Neurologic/Psychiatric: oriented x 3, grossly intact, power is 5/5 both on sides Skin: No rash on exposed areas, No ulcerations on exposed areas Results/Procedures: Labs Laboratory Tests 04/24/19 05:52: White Blood Count 12.2H, Red Blood Count 3.78L, Hemoglobin 10.2L, Hematocrit 32L , Mean Corpuscular Volume 84, Mean Corpuscular Hemoglobin 27, Mean Corpuscular Hemoglobin Concent 32, Red Cell Distribution Width 14.2, Platelet Count 322, Mean Platelet Volume 9.8, Neutrophils (%) (Auto) 73, Lymphocytes (%) (Auto) 16, Monocytes (%) (Auto) 8, Eosinophils (%) (Auto) 3, Basophils (%) (Auto) 0, Neutrophils # (Auto) 8.9H, Lymphocytes # (Auto) 1.9, Monocytes # (Auto) 1.0, Eosinophils # (Auto) 0.3, Basophils # (Auto) 0.0, Sodium Level 139, Potassium Level 3.1L, Chloride Level 101, Carbon Dioxide Level 27, Anion Gap 11, Blood Urea Nitrogen 9, Creatinine 0.63, Estimat Glomerular Filtration Rate > 60, BUN/Creatinine Ratio 14, Glucose Level 108H, Calcium Level 7.9L, Corrected Calcium 8.6, Total Bilirubin 0.4, Aspartate Amino Transf (AST/SGOT) 17, Alanine Aminotransferase (ALT/SGPT) 34, Alkaline Phosphatase 94, Total Protein 6.0L, Albumin 3.1L Microbiology 04/22/19 Blood Culture - Preliminary, Resulted No growth A/P: Assessment: Post- shortness of breath likely d/t vol overload, pneumonia and likely obesity-hypoventilation syndrome Hypertension - improved Echocardiogram of April 22, 2019: LVEF 55-60%. Mod dilated LA. Mild to mod MR. RVSP 15-20 mmHg Anemia of undetermined etiology Plan: * LVEF 55-60% on recent echo; we will therefore stop the Lisinopril * Increase BB for BP control * Advise out w/u for probable FARRAH - Dr. Ledesma managing * Replenish K * Monitor labs * Outpatient f/u after discharge Physician Assessment Physician Assessment No cp or palp or syncope or shortness of breath at rest Wishes to go home Lungs: clear Cor: reg Ext: no c/c/e A&R * As documented in our note above that I updated (italics) and as noted below * D/c lisinopril * Increase bb * Outpt f/u * I answered her and her family's CV-related questions DANIELA HAM CUT OFF MAN Apr 24, 2019 09:32 SHIKHA EDMOND MD [facility] Apr 24, 2019 10:27
[2019-04-24] MEDS ORDERED: METO-395 PO (09:36)
--- NOTE | 2019-04-24 10:20 | Discharge Summary-Hospitalist ---
Diagnosis/Chief Complaint Date of Admission Apr 22, 2019 at 13:57 Date of Discharge Discharge Date: Apr 24, 2019 Admission Diagnosis Assessment: Respiratory insufficiency Post pre-eclampsia Infiltrate on CXR Elevated BNP Pulmonary edema GERD Depression Anemia Leukocytosis Hypokalemia Low albumin Plan: Monitor BP Parth Tinoco Shaw in consultations IV diuresis O2 Nebs Monitor closely Discharge Diagnosis (1) Respiratory insufficiency Status: Acute (2) Infiltrate noted on imaging study Status: Acute (3) Pulmonary edema Status: Acute (4) Elevated brain natriuretic peptide (BNP) level Status: Acute (5) Pre-eclampsia, Status: Acute (6) Hypertensive urgency Status: Acute (7) Dyspnea Status: Acute (8) Anemia Status: Chronic (9) Leukocytosis Status: Acute (10) Abnormal albumin Status: Acute Discharge Summary Discharge Physical Exam Allergies: Coded Allergies: NKANo Known Allergies (Unverified Allergy, Mild, 12/08/09) Vitals & I&Os Vital Signs Date Time Temp Pulse Resp B/P (MAP) Pulse Ox O2 Delivery O2 Flow Rate FiO2 04/24/19 12:35 70 20 138/77 96 Room Air 0.00 04/24/19 08:14 98.4 04/22/19 17:10 21 General Appearance: No Apparent Distress, WD/WN Respiratory: Chest Non Tender, Lungs Clear, Normal Breath Sounds, No Accessory Muscle Use, No Respiratory Distress Cardiovascular: Regular Rate, Rhythm, No Edema, No Gallop, No JVD, No Murmur, Normal Peripheral Pulses Neurologic/Psychiatric: Alert, Oriented x3, No Motor/Sensory Deficits, Normal Mood/Affect Hospital Course Was the Problem List Reviewed?: Yes Hospital course: patient had a short hospital course. She was admitted to ICU for monitoring of presumed post preeclampsia so Cardiology, Pulmonology, Gynecology were all consulted and labs reviewed and echo obtained. Lasix was given with immediate results and improvement in symptoms. All meds were evaluated and patient was placed on abx to complete treatment for early pneumonia and patient was agreeable to DC as all of the consultants were in agreement. Labs (last 24 hrs) Laboratory Tests 04/24/19 05:52: White Blood Count 12.2H, Red Blood Count 3.78L, Hemoglobin 10.2L, Hematocrit 32L , Mean Corpuscular Volume 84, Mean Corpuscular Hemoglobin 27, Mean Corpuscular Hemoglobin Concent 32, Red Cell Distribution Width 14.2, Platelet Count 322, Mean Platelet Volume 9.8, Neutrophils (%) (Auto) 73, Lymphocytes (%) (Auto) 16, Monocytes (%) (Auto) 8, Eosinophils (%) (Auto) 3, Basophils (%) (Auto) 0, Neutrophils # (Auto) 8.9H, Lymphocytes # (Auto) 1.9, Monocytes # (Auto) 1.0, Eosinophils # (Auto) 0.3, Basophils # (Auto) 0.0, Sodium Level 139, Potassium Level 3.1L, Chloride Level 101, Carbon Dioxide Level 27, Anion Gap 11, Blood Urea Nitrogen 9, Creatinine 0.63, Estimat Glomerular Filtration Rate > 60, BUN/Creatinine Ratio 14, Glucose Level 108H, Calcium Level 7.9L, Corrected Calcium 8.6, Total Bilirubin 0.4, Aspartate Amino Transf (AST/SGOT) 17, Alanine Aminotransferase (ALT/SGPT) 34, Alkaline Phosphatase 94, Total Protein 6.0L, Albumin 3.1L Microbiology 04/22/19 Blood Culture - Preliminary, Resulted No growth Patient resulted labs reviewed. Pending Labs Discussion & Recommendations Discharge Planning: <30 minutes discharge planning Discharge Home Medications: Active Scripts Active Cefdinir 300 Mg Capsule 300 Mg PO BID Metoprolol Succinate 100 Mg Tab.er.24h 100 Mg PO DAILY Reported Ibu (Ibuprofen) 600 Mg Tablet 600 Mg PO Q6H PRN Tylenol Extra Strength (Acetaminophen) 500 Mg Tablet 1,000 Mg PO Q6H PRN Proair Hfa (Albuterol Sulfate) 1 Puff Puff 2 Puff IH Q4H PRN Prevacid 24Hr (Lansoprazole) 15 Mg Capsule.dr 15 Mg PO DAILY PRN 19 Tablet (Udi947/Iron Fumarate/FA/Dss) 1 Each Tablet 1 Tab.chew PO HS Iron (Ferrous Sulfate) 325 Mg Tablet 325 Mg PO HS Instructions to patient/family Please see electronic discharge instructions given to patient. Clinical Quality Measures DVT/VTE Risk/Contraindication: Risk Factor Score Per Nursin RFS Level Per Nursing on Admit: 3=High Problem Qualifiers (1) Pulmonary edema: Chronicity: acute Qualified Codes: J81.0 - Acute pulmonary edema (2) Dyspnea: Dyspnea type: dyspnea on exertion Qualified Codes: R06.09 - Other forms of dyspnea (3) Anemia: Anemia type: unspecified type Qualified Codes: D64.9 - Anemia, unspecified (4) Leukocytosis: Leukocytosis type: leukemoid reaction Qualified Codes: D72.823 - Leukemoid reaction ISSAC MATHIS DO Apr 24, 2019 10:20
[2019-04-24] MEDS ORDERED: CEFD300C3 PO (10:21)
[2019-04-24 12:35] VITALS: BP 138/77
--- NOTE | 2019-04-24 12:35 | NUR ---
PT STABLE AND READY FOR DISCHARGE PER DR. BALL. WRITTEN AND VERBAL D/C INSTRUCTIONS GONE OVER WITH PT. PT GIVEN SCHEDULED F/U APPOINTMENT. EDUCATION GIVEN ON NEW MEDICATIONS. PT WAS TAKEN VIA WHEELCHAIR TO PRIVATE VEHICLE. ALL BELONGINGS SENT WITH PT.
[2019-04-25] MEDS ORDERED: meTOprolol SUCCINATE 100 MG (TOPROL XL) TAB PO SCH (09:00)
== END 2019-04-24 12:35 | disposition home or self-care (01) ==
LOC: EDUNIT# 09:58 → ER 09:58 → CSD 13:57 → ICU 14:29 → 4TH 04-23 13:55 → ICU 04-23 14:37
PROVIDERS: ADMIT Internal Medicine; ATTEND Internal Medicine
DX: O14.95 Unspecified pre-eclampsia, complicating the puerperium (principal); J81.0 Acute pulmonary edema; O10.13 Pre-existing hypertensive heart disease complicating the puerperium; I11.0 Hypertensive heart disease with heart failure; O99.43 Diseases of the circulatory system complicating the puerperium; I50.31 Acute diastolic (congestive) heart failure; O99.53 Diseases of the respiratory system complicating the puerperium; J18.9 Pneumonia, unspecified organism; R06.03 Acute respiratory distress; I16.0 Hypertensive urgency; O99.285 Endocrine, nutritional and metabolic diseases complicating the puerperium; E87.6 Hypokalemia; O99.03 Anemia complicating the puerperium; D64.9 Anemia, unspecified; O99.63 Diseases of the digestive system complicating the puerperium; K21.9 Gastro-esophageal reflux disease without esophagitis; O99.345 Other mental disorders complicating the puerperium; F32.9 Major depressive disorder, single episode, unspecified; J45.909 Unspecified asthma, uncomplicated
CPT/HCPCS: 36415; 71046; 80053; 81000; 82570; 82962; 83605; 83690; 83735; 83880; 84156; 84443; 85007; 85025; 85027; 86141; 87040; 93005; 93041; 93306; 96374

== ENCOUNTER 2020-05-20 00:03 | Emergency (ER) | payer BC, OTHER ==
[2020-05-20] VITALS (8 sets, daily range): BP systolic 106–125; BP diastolic 50–69
[~2020-05-20] VITALS: Ht 178 cm; Wt 118.5 kg
[~2020-05-20 00:03] MED LIST changes: +ACET-2267 PO; -ACET-77 PO; +ACET-78 PO; +CEFD300C3 PO; +MTP100TCR PO; +PREN-53 PO; +RT-ALBUINH IH
--- OUTSIDE RECORDS SUMMARY | 2020-05-20 00:11 | XMS REPORT ---
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 Immunizations The data below is from unstructured sources Name Given Type Tetanus Booster (TDap) Unknown Historical Results No Information Vital Signs The data below is from unstructured sources Vital Response Date/Time Temperature (Fahrenheit) 98.6 degree s F (97.6 - 99.5) Temperature (Calculated Celsius) 37. 92372 degrees C (36.4 - 37.5) Temperature Source Tympanic Pulse Rate (adult) 82 bpm (60 - 90) Respiratory Rate 16 bpm (12 - 24) Blood Pressure 120/56 mm Hg Height (Feet) 5 feet Height (Inches) 10.00 inches Height (Calculated Centimeters) 177. 981366 cm Weight (Pounds) 244 pounds Weight (Ounces) 2.0 oz Weight (Calculated Grams) 504304.238 gm Weight (Calculated Kilograms) 110.73 3238 kilograms Calculated BMI 35.01 Vital Response Date/Time Temperature (Fahrenheit) 96.3 degree s F (97.6 - 99.5) Temperature (Calculated Celsius) 35. 43837 degrees C (36.4 - 37.5) Temperature Source Tympanic Pulse Rate (adult) 81 bpm (60 - 90) Respiratory Rate 20 bpm (12 - 24) O2 Sat by Pulse Oximetry 96 % (88 - 100) Blood Pressure 110/71 mm Hg Pain Pain Intensity 0 Height (Feet) 5 feet Height (Inches) 10.00 inches Height (Calculated Centimeters) 177. 125178 cm Weight (Pounds) 231 pounds Weight (Ounces) 8.0 oz Weight (Calculated Grams) 954387.635 gm Weight (Calculated Kilograms) 105.00 6635 kilograms Calculated BMI 33.14 Vital Response Date/Time Temperature (Fahrenheit) 96.3 degree s F (97.6 - 99.5) Temperature (Calculated Celsius) 35. 42180 degrees C (36.4 - 37.5) Temperature Source Tympanic Pulse Rate (adult) 81 bpm (60 - 90) Respiratory Rate 20 bpm (12 - 24) O2 Sat by Pulse Oximetry 96 % (88 - 100) Blood Pressure 110/71 mm Hg Pain Pain Intensity 0 Height (Feet) 5 feet Height (Inches) 10.00 inches Height (Calculated Centimeters) 177. 485570 cm Weight (Pounds) 231 pounds Weight (Ounces) 8.0 oz Weight (Calculated Grams) 269584.635 gm Weight (Calculated Kilograms) 105.00 6635 kilograms Calculated BMI 33.14 Interventions No Information Plan of Treatment The data below is from unstructured sources Discharge Date 07/18/14 11:30am Disposition 01 HOME, SELF-CARE Instructions/Education Provided Phar yngitis (DC) Forms Provided Follow-Up Appts. PDI Medical Prescriptions See Medications Sectio n Referrals (Unspecified) Goals No Information Social History No Information Functional Status The data below is from unstructured sources Query Response Date Anil rded Patient Orientation Person Place Time Normal For Age July 18, 2014 1:07pm Comprehension Ability Understands Co ncepts July 18, 2014 9:00am Mental Status No Information Encounters No Information Medical Equipment No Information Payers No Information Advance Directives Directive Response Recor ded Date/Time Advance Directives No 6:51pm Health Care Power of Crosscutter Rolled Glass No 11/14/14 6:51pm Organ Donor Yes 11/14/14 6:51pm Resuscitation Status Full Code 11/14/14 6:51pm Directive Response Recor ded Date/Time Advance Directives No 3:58am Health Care Power of Crosscutter Rolled Glass No 07/18/14 3:58am Organ Donor Yes 07/18/14 3:58am Resuscitation Status Full Code 07/18/14 3:58am Resuscitation Status Full Code 07/18/14 3:27am Discharge Instructions No hospital discharge instructions. Patient Instructions Physician Instructions Goal/Follow Up Appt: Follow up w/ Dr. Shields next week as scheduled Discharge Diet: No Restrictions Activity as Tolerated: Yes Additional Source Comments This clinical document has been generated using [employer] software that has been certified by the Office of the National Coordinator for Health Information Technology (ONC 15.99.04.3023.Diam.31.00.0.112766) and the National Committee for Community Support Specialist (NCQA, as an eMeasure certified technology). FOR RECORDS PERTAINING TO PATIENTS WHO ARE OR HAVE BEEN ENROLLED IN A CHEMICAL D EPENDENCY/SUBSTANCE ABUSE PROGRAM, SOME INFORMATION MAY BE OMITTED. This clinica l summary was aggregated from multiple sources. Caution should be exercised in using it in the provision of clinical care. This summary normalizes information from multiple sources, and as a consequence, information in this document may ma terially change the coding, format and clinical context of patient data. In shannan tion, data may be omitted in some cases. CLINICAL DECISIONS SHOULD BE BASED ON T HE PRIMARY CLINICAL RECORDS. [employer] provides no warranty or guara ntee of the accuracy or completeness of information in this document.The followi ng information is based on time limited clinical information
[2020-05-20] MEDS ORDERED: LACTATED RINGERS 1,000 ML IV ONE ×2 (00:16→01:08)
[2020-05-20 00:40] LABS: BASOPHILS % (AUTO) 0 % (0-10); EOSINOPHILS # (AUTO) 0.3 10^3/uL (0.0-0.3); EOSINOPHILS % (AUTO) 3 % (0-10); HEMATOCRIT 38 % (35-52); HEMOGLOBIN 12.1 G/DL (11.5-16.0); LYMPHOCYTES # (AUTO) 3.6 X 10^3 (1.0-4.0); LYMPHOCYTES % (AUTO) 29 % (12-44); MEAN CORPUSCULAR HEMOGLOBIN 26 PG (25-34); MEAN CORPUSCULAR HGB CONC 32 G/DL (32-36); MEAN CORPUSCULAR VOLUME 80 FL (80-99); MEAN PLATELET VOLUME 9.1 FL (7.4-10.4); MONOCYTES % (AUTO) 8 % (0-12); NEUTROPHILS # (AUTO) 7.3 X 10^3 (1.8-7.8); NEUTROPHILS % (AUTO) 60 % (42-75); PLATELET COUNT 349 10^3/uL (130-400); WHITE BLOOD COUNT 12.1 10^3/uL (4.3-11.0)
[2020-05-20] MEDS ORDERED: SERT50TA9 (00:40)
[2020-05-20] MEDS ORDERED: ONDANSETRON 4 MG/2 ML (SDV) Z0FRAN ONE (00:40)
[2020-05-20] MEDS ORDERED: VARE1TAB22 (00:40)
[2020-05-20 00:50] LABS: ALBUMIN 3.8 GM/DL (3.2-4.5); CHLORIDE 107 MMOL/L (98-107); POTASSIUM 3.6 MMOL/L (3.6-5.0); SODIUM 140 MMOL/L (135-145)
[2020-05-20 00:51] LABS: CALCIUM 8.7 MG/DL (8.5-10.1)
[2020-05-20 00:53] LABS: GLUCOSE 105 MG/DL (70-105); TOTAL PROTEIN 6.9 GM/DL (6.4-8.2)
[2020-05-20 00:54] LABS: BILIRUBIN,TOTAL 0.4 MG/DL (0.1-1.0); CARBON DIOXIDE 22 MMOL/L (21-32)
[2020-05-20 00:56] LABS: ALKALINE PHOSPHATASE 65 U/L (40-136); GFR ESTIMATED > 60
[2020-05-20 00:57] LABS: BUN/CREATININE RATIO 11
[2020-05-20 00:59] LABS: ALANINE AMINOTRANSFERASE 26 U/L (0-55)
[2020-05-20] MEDS ORDERED: KETOROLAC 30 MG/ML VIAL IVP STA (01:08)
--- NOTE | 2020-05-20 01:09 | NUR ---
COVID SWAB SENT TO LAB
[2020-05-20 01:16] LABS: BILIRUBIN,URINE NEGATIVE (NEGATIVE); CLARITY,URINE SL CLOUDY; COLOR,URINE YELLOW; GLUCOSE, URINE (UA) NEGATIVE (NEGATIVE); KETONES,URINE NEGATIVE (NEGATIVE); LEUKOCYTE ESTERASE ,URINE NEGATIVE (NEGATIVE); NITRITE,URINE NEGATIVE (NEGATIVE); PH,URINE 6.5 (5-9); PROTEIN,URINE NEGATIVE (NEGATIVE)
[2020-05-20 01:17] LABS: ERYTHROCYTE SEDIMENTATION RATE 23 MM/HR (0-20)
[2020-05-20 01:38] LABS: BACTERIA,URINE NEGATIVE /HPF; SQUAMOUS EPITHELIAL CELL,UR RARE /HPF
--- NOTE | 2020-05-20 02:05 | NUR ---
PT UP AMBULATED TO RR WITHOUT DIFFICULTY
--- NOTE | 2020-05-20 02:23 | ED General ---
General Chief Complaint: Head/Cervical Problems Stated Complaint: PADILLA,DIZZY,NAUSEA Nursing Triage Note: C/O LEFT SIDED HEADACHE, DIZZINESS, NAUSEA SINCE 199905/19/2020. REPORTS PAIN WOKE HER UP APPROX 2300. Nursing Sepsis Screen: No Definite Risk Source of Information: Patient Exam Limitations: No Limitations History of Present Illness Date Seen by Provider: May 20, 2020 Time Seen by Provider: 01:00 Initial Comments Here with report of headache, dizziness, nausea, fatigue and body aches that has been progressing over the last 12 hours. Patient works at [employer], which is a business with a high incidence of COVID-19. She does wear mask at work. Denies fevers currently. States fatigue and body aches much more significant tonight. Her air conditioner did go out at her house he can do and so she has been in a warmer house over the last few days that she felt that may be part of the issue. Denies upper respiratory symptoms currently. Timing/Duration: 12 Hours, Getting Worse Severity: Moderate Associated Systoms: No Chest Pain, No Cough, No Fever/Chills; Malaise, Nausea/Vomiting; No Shortness of Air, No Weakness Allergies and Home Medications Allergies Coded Allergies: NKANo Known Allergies (Unverified Allergy, Mild, 12/08/09) Home Medications Metoprolol Succinate 100 Mg Tab.er.24h, 100 MG PO DAILY Prescribed by: DANIELA HAM on 04/24/19 4027 Patient Home Medication List Home Medication List Reviewed: Yes Review of Systems Review of Systems Constitutional: see HPI; No chills, No fever; malaise EENTM: No nose pain, No throat pain Respiratory: No cough, No short of breath Cardiovascular: No chest pain, No edema Gastrointestinal: No abdominal pain; nausea; No vomiting Genitourinary: no symptoms reported Musculoskeletal: muscle pain, muscle weakness Skin: no symptoms reported Psychiatric/Neurological: See HPI Hematologic/Lymphatic: No Symptoms Reported All Other Systems Reviewed Negative Unless Noted: Yes Past Sulcwwp-Dzhepd-Ayxhre Hx Past Med/Social Hx: Reviewed Nursing Past Med/Soc Hx Patient Social History Alcohol Use: Denies Use Recreational Drug Use: No Smoking Status: Current Everyday Smoker Type Used: Cigarettes 2nd Hand Smoke Exposure: No Recent Foreign Travel: No Contact w/Someone Who Travel: No Recent Infectious Disease Expo: No Recent Hopitalizations: No Physical Abuse: No Sexual Abuse: No Mistreated: No Fear: No Immunizations Up To Date Tetanus Booster (TDap): Unknown PED Vaccines UTD: Yes Date of Influenza Vaccine: Sep 02, 2015 Seasonal Allergies Seasonal Allergies: Yes Past Medical History Surgeries: Yes (BREAST REDUCTTION, lumpectomy in breast x2) Tonsillectomy Respiratory: Yes Asthma Cardiac: Yes Hypertension Neurological: No : No Last Menstrual Period: May 13, 2020 Reproductive Disorders: No Female Reproductive Disorders: Denies Sexually Transmitted Disease: No HIV/AIDS: No Genitourinary: No Gastrointestinal: Yes Gastroesophageal Reflux Musculoskeletal: No Endocrine: No HEENT: No Cancer: No Psychosocial: Yes Depression Integumentary: No Blood Disorders: No Adverse Reaction/Blood Tranf: No Family Medical History Reviewed Nursing Family Hx Asthma G8 SISTER Cardiovascular disease 19 FATHER Colon cancer 19 FATHER (Colon polyps) Deafness or hearing loss 19 FATHER Dementia Diabetes mellitus FH: breast cancer 19 MOTHER Hypertension G8 SISTER Myocardial infarction 19 FATHER Physical Exam Vital Signs Vital Signs - First Documented 05/20/20 00:14 Temp 36.9 Pulse 78 Resp 16 B/P (MAP) 124/75 (91) Pulse Ox 97 O2 Delivery Room Air Capillary Refill : Less Than 3 Seconds Height, Weight, BMI Height: 5'10.00" Weight: 268lbs. 6.0oz. 121.703657dw; 37.00 BMI Method:Actual General Appearance: No Apparent Distress, WD/WN HEENT: PERRL/EOMI, Pharynx Normal Neck: Non Tender, Supple Respiratory: Lungs Clear, Normal Breath Sounds Cardiovascular: Regular Rate, Rhythm, No Murmur Gastrointestinal: Non Tender, Soft Back: Normal Inspection, No CVA Tenderness, No Vertebral Tenderness Extremity: Normal Range of Motion, Non Tender Neurologic/Psychiatric: Alert, Oriented x3 Skin: Normal Color, Warm/Dry Progress/Results/Core Measures Suspected Sepsis Recent Fever Within 48 Hours: No Infection Criteria Present: None New/Unexplained Altered Menta: No Sepsis Screen: No Definite Risk SIRS Temperature: Pulse: 77 Respiratory Rate: 18 Laboratory Tests 05/20/20 00:26: White Blood Count 12.1H Blood Pressure 113 /61 Mean: 78 Laboratory Tests 05/20/20 00:26: Creatinine 0.70, Platelet Count 349, Total Bilirubin 0.4 Results/Orders Lab Results Laboratory Tests Test 05/20/20 00:20 05/20/20 00:26 05/20/20 01:09 Range/Units Urine Color YELLOW Urine Clarity SL CLOUDY Urine pH 6.5 5-9 Urine Specific [place] 1.020 1.016-1.022 Urine Protein NEGATIVE NEGATIVE Urine Glucose (UA) NEGATIVE NEGATIVE Urine Ketones NEGATIVE NEGATIVE Urine Nitrite NEGATIVE NEGATIVE Urine Bilirubin NEGATIVE NEGATIVE Urine Urobilinogen 0.2 < = 1.0 MG/DL Urine Leukocyte Esterase NEGATIVE NEGATIVE Urine RBC (Auto) NEGATIVE NEGATIVE Urine RBC NONE /HPF Urine WBC NONE /HPF Urine Squamous Epithelial Cells RARE /HPF Urine Crystals NONE /LPF Urine Bacteria NEGATIVE /HPF Urine Casts NONE /LPF Urine Mucus NEGATIVE /LPF Urine Culture Indicated NO White Blood Count 12.1 H 4.3-11.0 10^3/uL Red Blood Count 4.74 4.35-5.85 10^6/uL Hemoglobin 12.1 11.5-16.0 G/DL Hematocrit 38 35-52 % Mean Corpuscular Volume 80 80-99 FL Mean Corpuscular Hemoglobin 26 25-34 PG Mean Corpuscular Hemoglobin Concent 32 32-36 G/DL Red Cell Distribution Width 15.0 H 10.0-14.5 % Platelet Count 349 130-400 10^3/uL Mean Platelet Volume 9.1 7.4-10.4 FL Neutrophils (%) (Auto) 60 42-75 % Lymphocytes (%) (Auto) 29 12-44 % Monocytes (%) (Auto) 8 0-12 % Eosinophils (%) (Auto) 3 0-10 % Basophils (%) (Auto) 0 0-10 % Neutrophils # (Auto) 7.3 1.8-7.8 X 10^3 Lymphocytes # (Auto) 3.6 1.0-4.0 X 10^3 Monocytes # (Auto) 1.0 0.0-1.0 X 10^3 Eosinophils # (Auto) 0.3 0.0-0.3 10^3/uL Basophils # (Auto) 0.0 0.0-0.1 10^3/uL Erythrocyte Sedimentation Rate 23 H 0-20 MM/HR D-Dimer 0.48 0.00-0.49 UG/ML Sodium Level 140 135-145 MMOL/L Potassium Level 3.6 3.6-5.0 MMOL/L Chloride Level 107 98-107 MMOL/L Carbon Dioxide Level 22 21-32 MMOL/L Anion Gap 11 5-14 MMOL/L Blood Urea Nitrogen 8 7-18 MG/DL Creatinine 0.70 0.60-1.30 MG/DL Estimat Glomerular Filtration Rate > 60 BUN/Creatinine Ratio 11 Glucose Level 105 70-105 MG/DL Calcium Level 8.7 8.5-10.1 MG/DL Corrected Calcium 8.9 8.5-10.1 MG/DL Total Bilirubin 0.4 0.1-1.0 MG/DL Aspartate Amino Transf (AST/SGOT) 17 5-34 U/L Alanine Aminotransferase (ALT/SGPT) 26 0-55 U/L Alkaline Phosphatase 65 40-136 U/L Lactate Dehydrogenase 143 125-220 U/L C-Reactive Protein High Sensitivity 3.31 H 0.00-0.50 MG/DL Total Protein 6.9 6.4-8.2 GM/DL Albumin 3.8 3.2-4.5 GM/DL Procalcitonin 0.02 <0.10 NG/ML My Orders Orders - CECILIA GUAMAN MD Cbc With Automated Diff (05/20/20 00:16) Comprehensive Metabolic Panel (05/20/20 00:16) Fibrin Degradation Products (05/20/20 00:16) Procalcitonin (Pct) (05/20/20 00:16) Hs C Reactive Protein (05/20/20 00:16) Erythrocyte Sedimentation Rate (05/20/20 00:16) LDH (05/20/20 00:16) Ed Iv/Invasive Line Start (05/20/20 00:16) Lactated Ringers (Lr 1000 Ml Iv Solution (05/20/20 00:16) Ondansetron Injection (Zofran Injectio (05/20/20 00:40) Lactated Ringers (Lr 1000 Ml Iv Solution (05/20/20 01:08) Ketorolac Injection (Toradol Injection) (05/20/20 01:08) Chest 1 View, Ap/Pa Only (05/20/20 01:08) Ua Culture If Indicated (05/20/20 01:08) Coronavirus Sars-Cov-2 So 2018 (05/20/20 01:32) Medications Given in ED Current Medications Medications Dose Ordered Sig/Kurtis Route Start Time Stop Time Status Last Admin Dose Admin Lactated Ringer's 1,000 ml @ 0 mls/hr Q0M ONCE IV 05/20/20 00:16 05/20/20 00:18 DC 05/20/20 00:30 0 MLS/HR Lactated Ringer's 1,000 ml @ 0 mls/hr Q0M ONCE IV 05/20/20 01:08 05/20/20 01:11 DC 05/20/20 01:16 0 MLS/HR Ondansetron HCl 4 mg STK-MED ONCE .ROUTE 05/20/20 00:40 05/20/20 00:43 DC 05/20/20 00:44 4 MG Vital Signs/I&O 05/20/20 05/20/20 05/20/20 05/20/20 00:14 00:30 00:45 01:00 Temp 36.9 Pulse 78 73 72 84 Resp 16 18 18 16 B/P (MAP) 124/75 (91) 112/51 (71) 117/64 (81) 112/50 (70) Pulse Ox 97 99 99 100 O2 Delivery Room Air Room Air Room Air Room Air 05/20/20 05/20/20 05/20/20 05/20/20 01:15 01:30 01:45 02:00 Pulse 71 82 81 77 Resp 16 18 16 18 B/P (MAP) 125/62 (83) 106/62 (77) 107/61 (76) 113/61 (78) Pulse Ox 99 97 98 97 O2 Delivery Room Air Room Air Room Air Room Air Capillary Refill : Less Than 3 Seconds Blood Pressure Mean: 78 Progress Note : Progress Note Seen and evaluated. The patient at high risk for COVID-19 due to where she works. We will check labs and x-ray as well as initiate COVID-19 swab testing. LR 1 L bolus administered 2 L and Toradol 30 mg IV ordered. This was given. Overall this did help out her body aches saw him although did not resolve it completely. She still has mild headache. Tylenol offered but patient declined. She feels well enough to go home. Discharge home with return precautions. Verbalize understanding instructions and agreement with plan Diagnostic Imaging Diagonstic Imaging: Xray Plain Films/CT/US/NM/MRI: chest Comments No acute findings Departure Impression Primary Impression: Viral syndrome Additional Impression: COVID-19 evaluation Disposition: HOME, SELF-CARE Condition: Stable Departure-Patient Inst. Decision time for Depature: 02:23 Referrals: NANNETTE VANEGAS DO (PCP/Family) Primary Care Physician Patient Instructions: Coronavirus Disease 2019 (COVID-19) (DC) Add. Discharge Instructions: All discharge instructions reviewed with patient and/or family. Voiced understanding. Drink plenty of fluids and get plenty of rest. You will need to remain on quarantine until test results are noted. If they are negative, you will need to be isolated for 3 days after symptoms resolve. If they are positive, the health department will call you and direct quarantine timeframe. You may take ibuprofen 600 mg every 8 hours as needed for fever or pain. You may take Tylen ol/acetaminophen 1000 mg every 6-8 hours as needed for fever or pain. Return for worse pain, fever, vomiting, weakness, breathing problems or other concerns as needed. Scripts Ondansetron (Ondansetron Odt) 4 Mg Tab.rapdis 4 MG PO Q6H PRN for NAUSEA/VOMITING, #12 TAB 0 Refills Prov: CECILIA GUAMAN MD 05/20/20 CECILIA GUAMAN MD May 20, 2020 02:23
[2020-05-20] MEDS ORDERED: ONDA4TAB11 PO (02:24)
--- NOTE | 2020-05-20 08:58 | Diagnostic Imaging Report ---
INDICATION: Head pain. Compared 04/22/2019 FINDINGS: The lungs are clear. There is no failure, effusion or pneumothorax. IMPRESSION: Negative Dictated by: Dictated on workstation # [id number]
== END 2020-05-20 02:29 | disposition home or self-care (01) ==
LOC: EDUNIT# 00:03 → ER 00:05
DX: B34.9 Viral infection, unspecified (principal); Z20.828 Contact with and (suspected) exposure to other viral communicable diseases; F17.210 Nicotine dependence, cigarettes, uncomplicated; I10 Essential (primary) hypertension
CPT/HCPCS: 71045; 80053; 81000; 83615; 84145; 85025; 85379; 85652; 86141; 96361; 96374; 96375; 99284; U0002; 36415; 87635

== ENCOUNTER → 2021-07-02 | Outpatient (CLI) | payer BC ==
[~2021-07-02] MED LIST changes: +ONDA4TAB11 PO; +SERT-413; +VARE1TAB22
== END ==
LOC: LABNPT 08:50
PROVIDERS: ATTEND Otolaryngology Otolaryngology/Facial Plastic Surgery
DX: Z20.822 Contact with and (suspected) exposure to COVID-19 (principal)
CPT/HCPCS: 87635

== ENCOUNTER → 2021-07-06 | Outpatient (CLI) | payer BC | LOC: SLEEP 19:44 | PROVIDERS: ATTEND Family Medicine | DX: G47.33 Obstructive sleep apnea (adult) (pediatric) (principal) | CPT/HCPCS: 95810 ==

== ENCOUNTER → 2022-04-15 | Outpatient (CLI) | payer BC ==
[2022-04-15 14:00] LABS: ABSOLUTE RETIC # 70 10e9/uL (24-90); BASOPHILS # (AUTO) 0.1 10^3/uL (0.0-0.1); BASOPHILS % (AUTO) 0 % (0-10); EOSINOPHILS # (AUTO) 0.2 10^3/uL (0.0-0.3); EOSINOPHILS % (AUTO) 2 % (0-10); HEMATOCRIT 41 % (35-52); HEMOGLOBIN 12.9 g/dL (11.5-16.0); LYMPHOCYTES # (AUTO) 3.6 10^3/uL (1.0-4.0); LYMPHOCYTES % (AUTO) 25 % (12-44); MEAN CORPUSCULAR HEMOGLOBIN 25 pg (25-34); MEAN CORPUSCULAR HGB CONC 32 g/dL (32-36); MEAN CORPUSCULAR VOLUME 81 fL (80-99); MEAN PLATELET VOLUME 10.4 fL (9.0-12.2); MONOCYTES # (AUTO) 0.7 10^3/uL (0.0-1.0); MONOCYTES % (AUTO) 5 % (0-12); NEUTROPHILS # (AUTO) 9.5 10^3/uL (1.8-7.8); NEUTROPHILS % (AUTO) 67 % (42-75); PLATELET COUNT 387 10^3/uL (130-400); RETICULOCYTE % 1.37 % (0.50-2.40); WHITE BLOOD COUNT 14.2 10^3/uL (4.3-11.0)
[2022-04-15 14:54] LABS: BAND NEUTROPHILS 0 %; BASOPHILS % (MANUAL) 0 %; EOSINOPHILS % (MANUAL) 1 %; LYMPHOCYTES % (MANUAL) 25 %; MONOCYTES % (MANUAL) 8 %; NEUTROPHILS % (MANUAL) 66 %; RBC MORPH NORMAL
== END ==
LOC: GIR 13:35
PROVIDERS: ATTEND Family Medicine
DX: D72.829 Elevated white blood cell count, unspecified (principal); R71.8 Other abnormality of red blood cells
CPT/HCPCS: 85007; 85027; 85045; 85055

== ENCOUNTER → 2022-12-27 | Outpatient (CLI) | payer BC, OTHER ==
[~2022-12-27] MED LIST changes: +ALBU8.5H6 IH; -RT-ALBUINH IH
[2022-12-27 13:45] LABS: ABSOLUTE RETIC # 99 10e9/uL (24-90); RETICULOCYTE % 1.92 % (0.50-2.40)
[2022-12-27 13:55] LABS: BAND NEUTROPHILS 1 %; BASOPHILS % (MANUAL) 0 %; EOSINOPHILS % (MANUAL) 1 %; LYMPHOCYTES % (MANUAL) 25 %; MICROCYTOSIS SLIGHT; MONOCYTES % (MANUAL) 5 %; NEUTROPHILS % (MANUAL) 68 %
== END ==
LOC: LABNPT 13:35
PROVIDERS: ATTEND Family Medicine
DX: Z01.89 Encounter for other specified special examinations (principal)
CPT/HCPCS: 85007; 85045; 85055

== ENCOUNTER 2023-01-04 14:38 | Outpatient (RCR) | payer BC | END 2023-01-17 | disposition home or self-care (01) | LOC: ONC 14:38 | PROVIDERS: ATTEND Internal Medicine Hematology & Oncology | DX: Z53.9 Procedure and treatment not carried out, unspecified reason (principal) ==